=== PATIENT | female | born 1985 ===

== ENCOUNTER 2018-05-27 07:16 | Emergency (ER) | payer MEDICAID ==
[2018-05-27 07:16] VITALS: BMI 27.9
[2018-05-27] MEDS ORDERED: Sodium Chloride 0.9% 1,000 ML IV STA (08:10)
[2018-05-27 08:40] LABS: SQUAMOUS EPITHIAL 3 /hpf (0-5); URINE BACTERIA RARE (<OCC); URINE BILIRUBIN NEGATIVE (NEGATIVE); URINE BLOOD SMALL (NEGATIVE); URINE CLARITY SLIGHTY-CLOUDY (Clear); URINE COLOR YELLOW (YELLOW); URINE GLUCOSE (UA) NEG (Normal); URINE LEUKOCYTE ESTERASE NEG Leu/uL (Negative); URINE PROTEIN NEGATIVE (NEGATIVE); URINE UROBILINOGEN 0.2-1.0 mg/dL (0.2-1.0)
[2018-05-27 09:08] LABS: ALB/GLOB RATIO 1.2 (1.0-2.1); ALBUMIN 3.9 g/dL (3.5-5.0); ALT/SGPT 29 U/L (9-52); AST/SGOT 19 U/L (14-36); BLOOD UREA NITROGEN 8 mg/dl (7-17); CALCIUM 9.1 mg/dL (8.4-10.2); GFR NON-AFRICAN AMERICAN > 60; LIPASE 39 U/L (23-300)
--- NOTE | 2018-05-27 09:17 | ED PDOC ---
HPI: Abdomen Time Seen by Provider: 05/27/18 07:39 Chief Complaint (Nursing): Abdominal Pain Chief Complaint (Provider): Abdominal Pain History Per: Patient History/Exam Limitations: no limitations Onset/Duration Of Symptoms: Days (x1 week) Current Symptoms Are (Timing): Still Present Additional Complaint(s): 32 year old female, with a PMHx of left ovarian cysts, presenting for evaluation of left ovarian cyst pain x1 week. Patient states she's had this current left o varian cyst for 3 months, but the pain has gradually worsened over the past week and became constant at 0000. Patient states she's been taking Tramadol and Motrin for pain. She states the Motrin provides no relief of pain and reports some relief of pain with Tramadol, but states it upsets her stomach. Patient states her Tramadol is from a previous prescription for which she obtained a refill. Patient also reports 3 episodes of non-bloody, non-bilious vomiting at 0000 and 4-5 more episodes of the same this morning prior to arrival. She reports taking Zofran for her nausea with relief and denies any current nausea. Patient states she is presenting today because her current pain is different fr om her prior ovarian cyst pain. She reports following up for her condition at [facility] and states she has an appointment to see a specialist 06/19. Patient otherwise denies any chest pain, shortness of breath, headache, cough, fever, or chills. Patient also reports vaginal discharge x1 week. Patient states this discharge is unusual for her and reports she is sexually active with her partner. Patient denies any other associated urinary symptoms or vaginal bleeding. PMD: [facility] Past Medical History Reviewed: Historical Data, Nursing Documentation, Vital Signs Vital Signs: Last Vital Signs Temp 98.3 F 05/27/18 07:19 Pulse 58 L 05/27/18 07:47 Resp 18 05/27/18 07:47 BP 109/55 L 05/27/18 07:47 Pulse Ox 99 05/27/18 07:47 - Medical History PMH: Back Problems (Scoliosis; herniated disc), Gall Bladder Disease (''LIQUID AROUND GALLBLADDER'') Denies: Chronic Kidney Disease - Family History Family History: States: No Known Family Hx - Immunization History Hx Tetanus Toxoid Vaccination: No Hx Influenza Vaccination: Yes Hx Pneumococcal Vaccination: No - Home Medications Home Medications: Ambulatory Orders Medication Instructions Recorded Ibuprofen [Motrin] 600 mg PO Q8 #30 tab 05/21/18 Ondansetron ODT [Zofran ODT] 1 odt PO BID PRN #6 odt 05/21/18 Famotidine [Pepcid] 20 mg PO BID #28 tab 05/27/18 Naproxen [Naprosyn] 500 mg PO BID PRN #20 tablet 05/27/18 - Allergies Allergies/Adverse Reactions: Allergies Allergy/AdvReac Type Severity Reaction Status Date / Time No Known Allergies Allergy Verified 05/21/18 12:24 Review of Systems ROS Statement: Except As Marked, All Systems Reviewed And Found Negative Constitutional: Negative for: Fever, Chills Gastrointestinal: Positive for: Nausea (none currently), Vomiting, Abdominal Pain. Negative for: Diarrhea Genitourinary Female: Positive for: Vaginal Discharge. Negative for: Dysuria, Frequency, Incontinence, Hematuria, Vaginal Bleeding Physical Exam - Reviewed Nursing Documentation Reviewed: Yes Vital Signs Reviewed: Yes - Physical Exam Appears: Positive for: Non-toxic, In Acute Distress (moderate discomfort secondary to pain) Head Exam: Positive for: ATRAUMATIC, NORMAL INSPECTION, NORMOCEPHALIC Skin: Positive for: Normal Color, Warm, Dry. Negative for: Rash Eye Exam: Positive for: EOMI, Normal appearance, PERRL ENT: Positive for: Normal ENT Inspection Neck: Positive for: Normal, Painless ROM, Supple Cardiovascular/Chest: Positive for: Regular Rate, Rhythm. Negative for: Murmur Respiratory: Positive for: Normal Breath Sounds. Negative for: Respiratory Distress Gastrointestinal/Abdominal: Positive for: Tenderness (diffuse; worse on left than right), Guarding Back: Positive for: L CVA Tenderness, R CVA Tenderness (greater than left) Extremity: Positive for: Normal ROM. Negative for: Pedal Edema, Deformity Neurologic/Psych: Positive for: Alert, Oriented (x3). Negative for: Mo tor/Sensory Deficits - Laboratory Results Result Diagrams: 05/27/18 08:35 05/27/18 08:35 - ECG O2 Sat by Pulse Oximetry: 99 (RA) Pulse Ox Interpretation: Normal Medical Decision Making Medical Decision Makin Impression: Abdominal pain Plan: -CMP -Lipase -Urine dip -CBC -NS 1L IVB -Pepcid 20mg IVP -Toradol 30mg IVP -IV insertion -Urinalysis -Pelvis US -Reevaluation 09: On re-evaluation, patient is complaining of nausea and continued pain. -Morphine 2mg IV -Zofran 4mg IVP -Re-evaluation Scribe Attestation: Documented by Asif Martinez, acting as a scribe for Venessa Garcia MD. Provider Scribe Attestation: All medical record entries made by the Scribe were at my direction and personally dictated by me. I have reviewed the chart and agree that the record accurately reflects my personal performance of the history, physical exam, medical decision making, and the department course for this patient. I have also personally directed, reviewed, and agree with the discharge instructions and disposition. 2.00p - patient seen by Dr. Matthews earlier. Case d/w with him after review of labs and US. ADvised outpatient followup and pain control. Patient only taking Motrin once daily. Disposition - Clinical Impression Clinical Impression: Ovarian cyst - Patient ED Disposition Is Patient to be Admitted: No Doctor Will See Patient In The: Office Counseled Patient/Family Regarding: Diagnosis, Need For Followup, Rx Given - Disposition Referrals: [facility] [employer] [facility] [Outside] [facility] [Outside] [facility] [Outside] [employer] [place] [Outside] [facility] [Outside] Disposition: Routine/Home Disposition Time: 13:30 Condition: STABLE Prescriptions: Famotidine [Pepcid] 20 mg PO BID #28 tab Naproxen [Naprosyn] 500 mg PO BID PRN #20 tablet PRN Reason: Pain, Moderate (4-7) Instructions: Ovarian Cysts Forms: [employer] (Senegalese) - POA Present On Arrival: None
[2018-05-27 09:18] LABS: BASO % 0.7 % (0.0-2.0); EOS # 0.2 K/uL (0.0-0.7); EOS % 3.1 % (0.0-4.0); HEMOGLOBIN 13.6 g/dL (12.0-16.0); LYMPH # 1.8 K/uL (1.0-4.3); LYMPH % 34.9 % (20.0-40.0); MEAN CORPUSCULAR HEMOGLOBIN 29.3 pg (27.0-31.0); MEAN PLATELET VOLUME 9.7 fl (7.2-11.7); MONO # 0.4 K/uL (0.0-0.8); NEUT # 2.8 K/uL (1.8-7.0); NEUT % 53.3 % (50.0-75.0); NRBC % 0.1 % (0.0-0.0); RBC 4.64 Mil/uL (3.80-5.20); RED CELL DISTRIBUTION WIDTH 13.5 % (11.5-14.5); WHITE BLOOD COUNT 5.2 K/uL (4.8-10.8)
[2018-05-27 11:08] VITALS: PULSE 58
--- NOTE | 2018-05-27 12:24 | US ---
Date of service: 05/27/2018 HISTORY: ovarian cyst x 3 months, worsening pain x 1 week. LMP 04/29/2018 COMPARISON: None available. TECHNIQUE: Transabdominal only. Real-time technique with 2D, duplex and color Doppler FINDINGS: UTERUS: Measures 4.8 x 5.5 x 8.4 cm. Normal in size and appearance. No fibroid or other mass lesion seen. ENDOMETRIUM: Measures 6.7 mm in diameter. No ultrasound findings to suggest gestational sac, fluid, debris, mass or polyp or other pathologic process within the endometrium. CERVIX: No cervical abnormality identified. RIGHT OVARY: Measures 1.5 x 2.2 cm. No solid mass. Normal flow. Multiple subcentimeter follicles. LEFT OVARY: Measures 2.3 x 4.6 x 4.8 cm. No solid mass. Normal flow. Mass/complex cyst 2.3 x 4.5 x 4.8 cm. Is FREE FLUID: No significant free fluid noted. OTHER FINDINGS: None. IMPRESSION: Unremarkable uterus, endometrial echo complex and right ovary. Complex cyst/mass left adnexa. If there is a clinical suspicion of ectopic gestation, appropriate follow-up recommended. Otherwise follow-up ultrasound 4-6 weeks.
[2018-05-27 14:41] VITALS: BP 106/58; RESP 18; TEMP 99.6; O2SAT 98
== END 2018-05-27 14:39 | disposition home or self-care (01) ==
LOC: H.ER 07:16
DX: N83.209 Unspecified ovarian cyst, unspecified side (principal)
CPT/HCPCS: 76856; 80053; 81003; 81025; 83690; 85025; 96374; 96375; 99284; J1885; J2270; J2405; J7030

== ENCOUNTER 2018-06-21 00:08 | Inpatient (IN) | payer MEDICAID ==
[2018-06-21 00:09] VITALS: BMI 18.8
--- NOTE | 2018-06-21 01:02 | ED PDOC ---
HPI: Abdomen Time Seen by Provider: 06/21/18 00:22 Chief Complaint (Nursing): Abdominal Pain Chief Complaint (Provider): Abdominal pain, involuntary weight loss History Per: Patient History/Exam Limitations: no limitations Onset/Duration Of Symptoms: Persistent Outside of [place] travel?: No Current Symptoms Are (Timing): Still Present Additional Complaint(s): 32yo female, comes to ER reporting abdominal pain and weight loss. Patient states she has a history of ovarian cysts and since late May, she has had intermittent abdominal pain with marked involuntary weight loss (apporixmately 25ls.) Patient was seen in this ER, [facility] and [facility] ER with extensive workup, including labs, CT and ultrasound with nonspecific result. Patient states the symptoms have become worse and today, her pain is 7/10 and located in her left abdomen. Patient states she was started on Cipro and Flagyl at [facility] and she saw her PMD yesterday, who gave her an inhaler due to shortness of breath at night. Of note, patient states she is m arried and her is her only partner. Otherwise, patient denies any travels, and offers no additional complaints. PMD: Dr. Isidra Tapia Past Medical History Reviewed: Historical Data, Nursing Documentation, Vital Signs Vital Signs: Last Vital Signs Temp 98.2 F 06/21/18 00:18 Pulse 50 L 06/21/18 00:18 Resp 18 06/21/18 00:18 BP 112/60 06/21/18 00:18 Pulse Ox 99 06/21/18 00:18 - Medical History PMH: Back Problems (Scoliosis; herniated disc), Gall Bladder Disease (''LIQUID AROUND GALLBLADDER'') Denies: Chronic Kidney Disease - Surgical History Surgical History: No Surg Hx - Family History Family History: States: Other Other Family History: Aunt with breast cancer; aunt with (?) nasopharyngeal cancer - Living Arrangements Living Arrangements: With Family - Social History Current smoker - smoking cessation education provided: No Ex-Smoker (has not smoked in the last 12 months): Yes (stopped 3 yrs ago) - Immunization History Hx Tetanus Toxoid Vaccination: No Hx Influenza Vaccination: No Hx Pneumococcal Vaccination: No - Home Medications Home Medications: Ambulatory Orders Medication Instructions Recorded Pantoprazole Sodium [Protonix] 40 mg PO DAILY #30 ect 06/18/18 - Allergies Allergies/Adverse Reactions: Allergies Allergy/AdvReac Type Severity Reaction Status Date / Time No Known Allergies Allergy Verified 06/21/18 00:18 Review of Systems ROS Statement: Except As Marked, All Systems Reviewed And Found Negative Constitutional: Positive for: Weight loss Gastrointestinal: Positive for: Abdominal Pain Physical Exam - Reviewed Nursing Documentation Reviewed: Yes Vital Signs Reviewed: Yes - Physical Exam Appears: Positive for: Non-toxic. Negative for: Well (cachectic appearing) Skin: Positive for: Pallor Eye Exam: Positive for: Normal appearance Neck: Positive for: Supple Cardiovascular/Chest: Positive for: Regular Rate, Rhythm Respiratory: Positive for: Normal Breath Sounds Gastrointestinal/Abdominal: Positive for: Soft, Tenderness (diffuse tenderness) Back: Positive for: Normal Inspection Extremity: Positive for: Normal ROM Neurologic/Psych: Positive for: Alert, Oriented - Laboratory Results Result Diagrams: 06/21/18 01:05 06/21/18 01:05 - ECG O2 Sat by Pulse Oximetry: 99 (RA) Pulse Ox Interpretation: Normal Medical Decision Making Medical Decision Making: Impression: 32yo female with pathological weight loss in setting of abdominal pain. Patient w/ multiple ER visits. Plan: -- Labs -- IV Fluids -- Toradol 30mg IV -- Will defer CT studies due to multiple imaging studies in the past 3 weeks. 0155 HIV screen negative. 0219 Labs reviewed and significant for hypokalemis. Given patient's multiple ER visits and significant involuntary weight loss, patient to be admitted for further workup and treatment. Plan for admission discussed with patient, who is agreeable. Diagnosis: Cachexia with pathological weight loss Abdominal pain Hypokalemia. Scribe Attestation: Documented by Vaishnavi Angel, acting as a scribe for Tony Chong MD. Provider Scribe Attestation: All medical record entries made by the Scribe were at my direction and personal ly dictated by me. I have reviewed the chart and agree that the record accurately reflects my personal performance of the history, physical exam, medical decision making, and the department course for this patient. I have also personally directed, reviewed, and agree with the discharge instructions and disposition. Disposition - Clinical Impression Clinical Impression: Cachexia, Hypokalemia, Abdominal pain - Patient ED Disposition Is Patient to be Admitted: Yes Discussed With : Duke Laws - Disposition Disposition Time: 02:21 Condition: FAIR Forms: [employer] (Amharic)
[2018-06-21] MEDS ORDERED: Sodium Chloride 0.9% 1,000 ML IV STA (01:10)
[2018-06-21 01:24] LABS: BASO # 0.1 K/uL (0.0-0.2); BASO % 0.8 % (0.0-2.0); EOS # 0.2 K/uL (0.0-0.7); EOS % 2.7 % (0.0-4.0); HEMOGLOBIN 12.3 g/dL (12.0-16.0); LYMPH # 2.3 K/uL (1.0-4.3); MEAN CELL VOLUME 86.7 fl (81.0-99.0); MEAN CORPUSCULAR HEMOGLOBIN 28.3 pg (27.0-31.0); MEAN CORPUSCULAR HGB CONC 32.7 g/dL (33.0-37.0); MEAN PLATELET VOLUME 9.6 fl (7.2-11.7); MONO # 0.5 K/uL (0.0-0.8); MONO % 8.3 % (0.0-10.0); NEUT # 3.1 K/uL (1.8-7.0); NEUT % 50.2 % (50.0-75.0); NRBC % 0.1 % (0.0-0.0); RBC 4.33 Mil/uL (3.80-5.20); RED CELL DISTRIBUTION WIDTH 12.9 % (11.5-14.5); WHITE BLOOD COUNT 6.1 K/uL (4.8-10.8)
[2018-06-21 01:34] LABS: PROTHROMBIN TIME 11.7 Seconds (9.8-13.1)
[2018-06-21 01:37] LABS: ALB/GLOB RATIO 1.4 (1.0-2.1); ALBUMIN 4.6 g/dL (3.5-5.0); ALT/SGPT 29 U/L (9-52); AST/SGOT 24 U/L (14-36); BLOOD UREA NITROGEN 10 mg/dl (7-17); CALCIUM 9.1 mg/dL (8.4-10.2); GFR NON-AFRICAN AMERICAN > 60; LIPASE 35 U/L (23-300); PARTIAL THROMBOPLASTIN TIME 34.3 Seconds (25.6-37.1)
[2018-06-21] MEDS ORDERED: Potassium CL 10 MEQ/50 ML 50 ML IVPB ONE (02:17)
[2018-06-21] MEDS ORDERED: Potassium CL 10 MEQ/50 ML 50 ML ONE (03:04)
[2018-06-21 03:09] LABS: BARBITURATES, UR NEGATIVE (NEGATIVE); BENZODIAZEPINES, UR POSITIVE (NEGATIVE); OPIATES, UR NEGATIVE (NEGATIVE); PHENCYCLIDINE, UR NEGATIVE (NEGATIVE)
[2018-06-21] MEDS ORDERED: Sodium Chloride 0.9% 1,000 ML IV SCH (06:30)
[2018-06-21] MEDS ORDERED: Sucralfate 1 gm/10 ml Oral Susp UD PO SCH (19:00)
[2018-06-21] MEDS ORDERED: Potassium Chloride 20 mEq/15 ml LIQ UD PO ONE (19:46)
--- NOTE | 2018-06-21 19:49 | CP.PCM.CON ---
Past Patient History - Infectious Disease Hx of Infectious Diseases: None - Past Medical History & Family History Past Medical History?: Yes - Past Social History Smoking Status: Never Smoked - CARDIAC Hx Cardiac Disorders: No - PULMONARY Hx Respiratory Disorders: No - NEUROLOGICAL Hx Neurological Disorder: No - HEENT Hx HEENT Problems: No - RENAL Hx Chronic Kidney Disease: No - ENDOCRINE/METABOLIC Hx Endocrine Disorders: No - HEMATOLOGICAL/ONCOLOGICAL Hx Blood Disorders: No - INTEGUMENTARY Hx Dermatological Problems: No - MUSCULOSKELETAL/RHEUMATOLOGICAL Hx Musculoskeletal Disorders: Yes Hx Falls: No Other/Comment: Scoliosis - GASTROINTESTINAL Hx Gall Bladder Disease: Yes (''LIQUID AROUND GALLBLADDER'') - GENITOURINARY/GYNECOLOGICAL Hx Genitourinary Disorders: Yes Other/Comment: Lt ovarian cyst. at age 15. 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 Rt ovarian tumor removal - ANESTHESIA Hx Anesthesia: Yes Hx Anesthesia Reactions: No Hx Malignant Hyperthermia: No Meds Allergies/Adverse Reactions: Allergies Allergy/AdvReac Type Severity Reaction Status Date / Time No Known Allergies Allergy Verified 06/21/18 00:18 - Medications Medications: Current Medications Dicyclomine HCl (Bentyl) 10 mg PO QID SANJEEV Sodium Chloride (Sodium Chloride 0.9%) 1,000 mls @ 70 mls/hr IV .[id number] SANJEEV Stop: 06/22/18 06:20 Last Admin: 06/21/18 06:31 Dose: 70 mls/hr Dextrose/Lactated Ringer's (Dextrose 5%/Lactated Ringer's) 1,000 mls @ 100 mls/hr IV .Q10H SANJEEV Stop: 06/22/18 18:17 Pantoprazole Sodium (Protonix Inj) 40 mg IVP DAILY SANJEEV Potassium Chloride (Potassium Chloride Oral Soln) 40 meq PO ONCE ONE Stop: 06/21/18 19:47 Sucralfate (Carafate Oral Susp) 1 gm PO ACHS [facility] Results - Vital Signs Recent Vital Signs: Last Vital Signs Temp 98.7 F 06/21/18 15:55 Pulse 72 06/21/18 15:55 Resp 20 06/21/18 15:55 BP 114/65 06/21/18 15:55 Pulse Ox 100 06/21/18 15:55 - Labs Result Diagrams: 06/22/18 04:30 06/22/18 04:30 Labs: Laboratory Results - last 24 hr 06/21/18 06/21/18 06/21/18 01:05 01:05 01:05 WBC 6.1 RBC 4.33 Hgb 12.3 Hct 37.6 MCV 86.7 MCH 28.3 MCHC 32.7 L RDW 12.9 Plt Count 214 MPV 9.6 Neut % (Auto) 50.2 Lymph % (Auto) 38.0 Clare % (Auto) 8.3 Eos % (Auto) 2.7 Baso % (Auto) 0.8 Neut # (Auto) 3.1 Lymph # (Auto) 2.3 Clare # (Auto) 0.5 Eos # (Auto) 0.2 Baso # (Auto) 0.1 PT INR APTT Sodium 140 Potassium 3.3 L Chloride 105 Carbon Dioxide 26 Anion Gap 12 BUN 10 Creatinine 0.7 Est GFR ( Amer) > 60 Est GFR (Non-Af Amer) > 60 Random Glucose 79 Lactic Acid 0.8 Calcium 9.1 Magnesium 1.9 Total Bilirubin 0.8 AST 24 ALT 29 Alkaline Phosphatase 52 NT-Pro-B Natriuret Pep Total Protein 7.8 Albumin 4.6 Globulin 3.2 Albumin/Globulin Ratio 1.4 Lipase 35 Carcinoembryonic Ag CA 19-9 Antigen CA 125 Antigen TSH 3rd Generation 1.82 Urine Opiates Screen Urine Methadone Screen Ur Barbiturates Screen Ur Phencyclidine Scrn Ur Amphetamines Screen U Benzodiazepines Scrn U Oth Cocaine Metabols U Cannabinoids Screen RPR HIV-1 Ab Rapid Screen 06/21/18 06/21/18 06/21/18 01:05 01:05 01:05 WBC RBC Hgb Hct MCV MCH MCHC RDW Plt Count MPV Neut % (Auto) Lymph % (Auto) Clare % (Auto) Eos % (Auto) Baso % (Auto) Neut # (Auto) Lymph # (Auto) Clare # (Auto) Eos # (Auto) Baso # (Auto) PT 11.7 INR 1.0 APTT 34.3 Sodium Potassium Chloride Carbon Dioxide Anion Gap BUN Creatinine Est GFR ( Amer) Est GFR (Non-Af Amer) Random Glucose Lactic Acid Calcium Magnesium Total Bilirubin AST ALT Alkaline Phosphatase NT-Pro-B Natriuret Pep Total Protein Albumin Globulin Albumin/Globulin Ratio Lipase Carcinoembryonic Ag CA 19-9 Antigen CA 125 Antigen TSH 3rd Generation Urine Opiates Screen Urine Methadone Screen Ur Barbiturates Screen Ur Phencyclidine Scrn Ur Amphetamines Screen U Benzodiazepines Scrn U Oth Cocaine Metabols U Cannabinoids Screen RPR Nonreactive HIV-1 Ab Rapid Screen Non reactive 06/21/18 06/21/18 06/21/18 01:22 12:40 13:00 WBC RBC Hgb Hct MCV MCH MCHC RDW Plt Count MPV Neut % (Auto) Lymph % (Auto) Clare % (Auto) Eos % (Auto) Baso % (Auto) Neut # (Auto) Lymph # (Auto) Clare # (Auto) Eos # (Auto) Baso # (Auto) PT INR APTT Sodium Potassium Chloride Carbon Dioxide Anion Gap BUN Creatinine Est GFR ( Amer) Est GFR (Non-Af Amer) Random Glucose Lactic Acid Calcium Magnesium Total Bilirubin AST ALT Alkaline Phosphatase NT-Pro-B Natriuret Pep 306 Total Protein Albumin Globulin Albumin/Globulin Ratio Lipase Carcinoembryonic Ag 0.8 CA 19-9 Antigen 6.1 CA 125 Antigen < 5.5 TSH 3rd Generation Urine Opiates Screen Negative Urine Methadone Screen Negative Ur Barbiturates Screen Negative Ur Phencyclidine Scrn Negative Ur Amphetamines Screen Negative U Benzodiazepines Scrn Positive U Oth Cocaine Metabols Negative U Cannabinoids Screen Positive H RPR HIV-1 Ab Rapid Screen Assessment & Plan (1) Bradycardia Status: Acute (2) Chest pain Status: Acute (3) Dyspnea Status: Acute (4) Hx of hepatic disease Status: Acute (5) Tattoo of skin Status: Acute (6) Cachexia Status: Acute (7) Normocytic anemia Status: Acute - Assessment and Plan (Free Text) Plan: echo tft stool O A Schisto ABs lyme titer HIV mag and kcl replacement
[2018-06-21] MEDS: Dextrose 5%/Lactated Ringer's 1,000 ML IV SCH (19:55)
--- NOTE | 2018-06-21 20:57 | CP.PCM.HP ---
History of Present Illness - History of Present Illness History of Present Illness: 32F PMHx significant for ovarian cysts presented t ED w/ lower abdominal pain that has been intermittent over the last month. Patient has been to numerous hospitals and ED with similar episodes and as per patient no answered. Patient was found to have trace fluid in abdomen and some intestinal wall thickening, gallstones. Patient has also had 25lb weight loss, involuntarily. No other complaints offered at this time. Present on Admission - Present on Admission Any Indicators Present on Admission: No Review of Systems - Review of Systems All systems: reviewed and no additional remarkable complaints except (mentioned in HPI) Past Patient History - Infectious Disease Hx of Infectious Diseases: None - Past Medical History & Family History Past Medical History?: Yes Past Family History: Reviewed and not pertinent - Past Social History Smoking Status: Never Smoked - CARDIAC Hx Cardiac Disorders: No - PULMONARY Hx Respiratory Disorders: No - NEUROLOGICAL Hx Neurological Disorder: No - HEENT Hx HEENT Problems: No - RENAL Hx Chronic Kidney Disease: No - ENDOCRINE/METABOLIC Hx Endocrine Disorders: No - HEMATOLOGICAL/ONCOLOGICAL Hx Blood Disorders: No - INTEGUMENTARY Hx Dermatological Problems: No - MUSCULOSKELETAL/RHEUMATOLOGICAL Hx Musculoskeletal Disorders: Yes Hx Falls: No Other/Comment: Scoliosis - GASTROINTESTINAL Hx Gall Bladder Disease: Yes (''LIQUID AROUND GALLBLADDER'') - GENITOURINARY/GYNECOLOGICAL Hx Genitourinary Disorders: Yes Other/Comment: Lt ovarian cyst. at age 15. 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 Rt ovarian tumor removal - ANESTHESIA Hx Anesthesia: Yes Hx Anesthesia Reactions: No Hx Malignant Hyperthermia: No Meds Allergies/Adverse Reactions: Allergies Allergy/AdvReac Type Severity Reaction Status Date / Time No Known Allergies Allergy Verified 06/21/18 00:18 Physical Exam - Constitutional Appears: Non-toxic, No Acute Distress - Head Exam Head Exam: NORMAL INSPECTION - Eye Exam Eye Exam: Normal appearance - Neck Exam Neck exam: Positive for: Normal Inspection - Respiratory Exam Respiratory Exam: NORMAL BREATHING PATTERN - Cardiovascular Exam Cardiovascular Exam: +S1, +S2 - GI/Abdominal Exam GI & Abdominal Exam: Normal Bowel Sounds, Soft, Tenderness (lower abd) - Back Exam Back exam: NORMAL INSPECTION - Neurological Exam Neurological exam: Alert, Oriented x3 - Psychiatric Exam Psychiatric exam: Normal Affect, Normal Mood - Skin Skin Exam: Normal Color, Warm Results - Vital Signs Recent Vital Signs: Last Vital Signs Temp 98.5 F 06/21/18 20:34 Pulse 44 L 06/21/18 20:34 Resp 18 06/21/18 20:34 BP 120/67 06/21/18 20:34 Pulse Ox 100 06/21/18 20:34 - Labs Result Diagrams: 06/24/18 04:03 06/24/18 04:03 Labs: Laboratory Results - last 24 hr 06/21/18 06/21/18 06/21/18 01:05 01:05 01:05 WBC 6.1 RBC 4.33 Hgb 12.3 Hct 37.6 MCV 86.7 MCH 28.3 MCHC 32.7 L RDW 12.9 Plt Count 214 MPV 9.6 Neut % (Auto) 50.2 Lymph % (Auto) 38.0 Tyler % (Auto) 8.3 Eos % (Auto) 2.7 Baso % (Auto) 0.8 Neut # (Auto) 3.1 Lymph # (Auto) 2.3 Tyler # (Auto) 0.5 Eos # (Auto) 0.2 Baso # (Auto) 0.1 PT INR APTT Sodium 140 Potassium 3.3 L Chloride 105 Carbon Dioxide 26 Anion Gap 12 BUN 10 Creatinine 0.7 Est GFR ( Amer) > 60 Est GFR (Non-Af Amer) > 60 Random Glucose 79 Lactic Acid 0.8 Calcium 9.1 Magnesium 1.9 Total Bilirubin 0.8 AST 24 ALT 29 Alkaline Phosphatase 52 NT-Pro-B Natriuret Pep Total Protein 7.8 Albumin 4.6 Globulin 3.2 Albumin/Globulin Ratio 1.4 Lipase 35 Carcinoembryonic Ag CA 19-9 Antigen CA 125 Antigen TSH 3rd Generation 1.82 Urine Opiates Screen Urine Methadone Screen Ur Barbiturates Screen Ur Phencyclidine Scrn Ur Amphetamines Screen U Benzodiazepines Scrn U Oth Cocaine Metabols U Cannabinoids Screen RPR HIV-1 Ab Rapid Screen 06/21/18 06/21/18 06/21/18 01:05 01:05 01:05 WBC RBC Hgb Hct MCV MCH MCHC RDW Plt Count MPV Neut % (Auto) Lymph % (Auto) Tyler % (Auto) Eos % (Auto) Baso % (Auto) Neut # (Auto) Lymph # (Auto) Tyler # (Auto) Eos # (Auto) Baso # (Auto) PT 11.7 INR 1.0 APTT 34.3 Sodium Potassium Chloride Carbon Dioxide Anion Gap BUN Creatinine Est GFR ( Amer) Est GFR (Non-Af Amer) Random Glucose Lactic Acid Calcium Magnesium Total Bilirubin AST ALT Alkaline Phosphatase NT-Pro-B Natriuret Pep Total Protein Albumin Globulin Albumin/Globulin Ratio Lipase Carcinoembryonic Ag CA 19-9 Antigen CA 125 Antigen TSH 3rd Generation Urine Opiates Screen Urine Methadone Screen Ur Barbiturates Screen Ur Phencyclidine Scrn Ur Amphetamines Screen U Benzodiazepines Scrn U Oth Cocaine Metabols U Cannabinoids Screen RPR Nonreactive HIV-1 Ab Rapid Screen Non reactive 06/21/18 06/21/18 06/21/18 01:22 12:40 13:00 WBC RBC Hgb Hct MCV MCH MCHC RDW Plt Count MPV Neut % (Auto) Lymph % (Auto) Tyler % (Auto) Eos % (Auto) Baso % (Auto) Neut # (Auto) Lymph # (Auto) Tyler # (Auto) Eos # (Auto) Baso # (Auto) PT INR APTT Sodium Potassium Chloride Carbon Dioxide Anion Gap BUN Creatinine Est GFR ( Amer) Est GFR (Non-Af Amer) Random Glucose Lactic Acid Calcium Magnesium Total Bilirubin AST ALT Alkaline Phosphatase NT-Pro-B Natriuret Pep 306 Total Protein Albumin Globulin Albumin/Globulin Ratio Lipase Carcinoembryonic Ag 0.8 CA 19-9 Antigen 6.1 CA 125 Antigen < 5.5 TSH 3rd Generation Urine Opiates Screen Negative Urine Methadone Screen Negative Ur Barbiturates Screen Negative Ur Phencyclidine Scrn Negative Ur Amphetamines Screen Negative U Benzodiazepines Scrn Positive U Oth Cocaine Metabols Negative U Cannabinoids Screen Positive H RPR HIV-1 Ab Rapid Screen Assessment & Plan (1) Abdominal pain Status: Acute (2) Bradycardia Status: Acute (3) Gallstones Status: Acute (4) Hypokalemia Status: Acute (5) Ovarian cyst Status: Acute - Assessment and Plan (Free Text) Assessment: 32 yo f with abdominal pain with involunatary pathological weight loss found to have marked bradycardia and hypokalemia. plan obtain cardiology consult labs ordered f/u [facility] in telemetry rest of plan as ordered
[2018-06-21] MEDS: Sucralfate 1 gm/10 ml Oral Susp UD PO SCH (21:38)
--- NOTE | 2018-06-21 22:22 | CARD ---
APPROVED REPORT Date of service: 06/21/2018 EKG Measurement Heart [id number] <Conclusion> Marked sinus bradycardia Abnormal ECG
[2018-06-22 06:06] LABS: BASO % 0.9 % (0.0-2.0); EOS # 0.1 K/uL (0.0-0.7); EOS % 2.2 % (0.0-4.0); HEMOGLOBIN 11.4 g/dL (12.0-16.0); LYMPH # 1.6 K/uL (1.0-4.3); LYMPH % 33.7 % (20.0-40.0); MEAN CELL VOLUME 88.4 fl (81.0-99.0); MEAN CORPUSCULAR HEMOGLOBIN 28.8 pg (27.0-31.0); MEAN CORPUSCULAR HGB CONC 32.5 g/dL (33.0-37.0); MEAN PLATELET VOLUME 10.4 fl (7.2-11.7); MONO # 0.5 K/uL (0.0-0.8); MONO % 9.7 % (0.0-10.0); NEUT # 2.5 K/uL (1.8-7.0); NEUT % 53.5 % (50.0-75.0); NRBC % 0.1 % (0.0-0.0); RBC 3.97 Mil/uL (3.80-5.20); RED CELL DISTRIBUTION WIDTH 13.1 % (11.5-14.5); WHITE BLOOD COUNT 4.7 K/uL (4.8-10.8)
[2018-06-22] MEDS: Dextrose 5%/Lactated Ringer's 1,000 ML IV SCH (06:16)
[2018-06-22 06:35] LABS: ALB/GLOB RATIO 1.2 (1.0-2.1); ALBUMIN 3.3 g/dL (3.5-5.0); ALT/SGPT 32 U/L (9-52); AST/SGOT 19 U/L (14-36); BLOOD UREA NITROGEN 8 mg/dl (7-17); CALCIUM 8.5 mg/dL (8.4-10.2); GFR NON-AFRICAN AMERICAN > 60
[2018-06-22 07:54] LABS: HEPATITIS B SURFACE AG Negative (NEGATIVE)
[2018-06-22 08:00] LABS: HEPATITIS A IGM NEGATIVE (NEGATIVE); HEPATITIS B CORE AB NEGATIVE (NEGATIVE)
[2018-06-22 08:12] LABS: HEPATITIS C ANTIBODY NEGATIVE (NEGATIVE)
[2018-06-22] MEDS: Sucralfate 1 gm/10 ml Oral Susp UD PO SCH ×4 (08:56→21:21)
[2018-06-22] MEDS ORDERED: Influenza Vaccine 60 MCG/0.5 ML SYR (3 yr & up) IM ONE (09:00)
--- NOTE | 2018-06-22 11:22 | CT ---
Date of service: 06/21/2018 PROCEDURE: CT Abdomen and Pelvis without intravenous contrast HISTORY: Abdominal Pain COMPARISON: 05/27/2018 pelvic ultrasound TECHNIQUE: Unenhanced. Neither IV nor oral contrast administered Radiation dose: Total exam DLP = 185.76 mGy-cm. This CT exam was performed using one or more of the following dose reduction techniques: Automated exposure control, adjustment of the mA and/or kV according to patient size, and/or use of iterative reconstruction technique. FINDINGS: LOWER THORAX: Atelectatic changes left base. Trace right pleural effusion. LIVER: Unremarkable. No gross lesion or ductal dilatation. Perihepatic fluid. GALLBLADDER AND BILE DUCTS: Gallstones identified. Pericholecystic fluid noted. PANCREAS: Unremarkable. No gross lesion or ductal dilatation. SPLEEN: Unremarkable. ADRENALS: Unremarkable. No mass. KIDNEYS AND URETERS: Tiny bilateral nonobstructing renal calculi.. No hydronephrosis. No solid mass. VASCULATURE: Unremarkable. No aortic aneurysm. No atherosclerotic calcification or mural plaque present. BOWEL: Constipation without fecal impaction or obstruction. APPENDIX: No abnormalities to suggest acute appendicitis. No right lower quadrant inflammatory processes identified. PERITONEUM: Right upper quadrant fluid, fluid in the gallbladder fossa, perihepatic space and cul-de-sac. No visible free air. LYMPH NODES: Unremarkable. No enlarged lymph nodes. BLADDER: Unremarkable. REPRODUCTIVE: Unremarkable. BONES: No acute fracture. OTHER FINDINGS: None. IMPRESSION: 1. Gallstones. 2. Nonobstructing bilateral renal calculi. 3. Trace fluid in the right upper quadrant in the cul-de-sac. 4. Additional benign and/or incidental findings described above.
--- NOTE | 2018-06-22 17:52 | CARD ---
APPROVED REPORT Date of service: 06/22/2018 EXAM: Two-dimensional and M-mode echocardiogram with Doppler and color Doppler. Other Information Quality : GoodRhythm : Bradycardia INDICATION Orthopnea 2D DIMENSIONS IVSd0.79 (0.7-1.1cm)LVDd4.43 (3.9-5.9cm) LVOT Diameter2.16 (1.8-2.4cm)PWd0.74 (0.7-1.1cm) IVSs1.04 (0.8-1.2cm)LVDs2.56 (2.5-4.0cm) FS (%) 42.2 %PWs1.50 (0.8-1.2cm) M-Mode DIMENSIONS Left Atrium (MM)3.83 (2.5-4.0cm)IVSd0.52 (0.7-1.1cm) Aortic Root3.42 (2.2-3.7cm)LVDd5.51 (4.0-5.6cm) Aortic Cusp Exc.1.76 (1.5-2.0cm)PWd0.72 (0.7-1.1cm) IVSs0.85 cmFS (%) 41 % LVDs3.28 (2.0-3.8cm)PWs1.21 cm Aortic Valve AoV Peak Jratuath704.0cm/sAoV VTI25.3cmAO Peak GR.5mmHg LVOT Peak Psungixi59.4cm/sLVOT VTI20.44cmAO Mean GR.3mmHg VERO (VMAX)2.70se9QDN (VTI)2.12cm2 Mitral Valve MV E Wpcqpulj27.1cm/sMV DECEL [id number] A Gfeshkns64.8cm/s MV XYU54kuP/A ratio1.9MVA (PHT)4.13cm2 TDI Lateral E' Peak V15.32cm/sMedial E' Peak V13.85cm/sE/Lateral E'4.6 E/Medial E'5.1 Tricuspid Valve TR Peak Qaivujtt394tv/sRAP AONMQCOT27mqBaXA Peak Gr.17mmHg TQOP26rrQc LEFT VENTRICLE The left ventricle is normal size. There is normal left ventricular wall thickness. The left ventricular systolic function is normal. The estimated ejection fraction is 60-65% No regional wall motion abnormalities noted.. The left ventricular diastolic function is normal. No left ventricle thrombus noted on this study. There is no ventricular septal defect visualized. There is no left ventricular aneurysm. There is no mass noted in the left ventricle. RIGHT VENTRICLE The right ventricle is normal size. There is normal right ventricular wall thickness. The right ventricular systolic function is normal. ATRIA The left atrium size is normal. The right atrium size is normal. The interatrial septum is intact with no evidence for an atrial septal defect. AORTIC VALVE The aortic valve is normal in structure. No aortic regurgitation is present. There is no aortic valvular stenosis. There is no aortic valvular vegetation. MITRAL VALVE The mitral valve is normal in structure. There is no evidence of mitral valve prolapse. There is no mitral valve stenosis. There is no mitral valve regurgitation noted. TRICUSPID VALVE The tricuspid valve is normal in structure. There is mild tricuspid valve regurgitation noted. RVSP is calculated at 30 mm Hg. There is no tricuspid valve prolapse or vegetation. There is no tricuspid valve stenosis. PULMONIC VALVE The pulmonary valve is normal in structure. There is no pulmonic valvular regurgitation. There is no pulmonic valvular stenosis. GREAT VESSELS The aortic root is normal in size. The ascending aorta is normal in size. The pulmonary artery is normal. The IVC is normal in size and collapses >50% with inspiration. PERICARDIAL EFFUSION There is no pericardial effusion. There is no pleural effusion. <Conclusion> The estimated ejection fraction is 60-65% The left ventricular diastolic function is normal. The left atrium size is normal. There is mild tricuspid valve regurgitation noted. RVSP is calculated at 30 mm Hg.
[2018-06-23] MEDS: Sucralfate 1 gm/10 ml Oral Susp UD PO SCH ×4 (09:50→21:12)
--- NOTE | 2018-06-23 11:09 | CP.PCM.CON ---
History of Present Illness - History of Present Illness History of Present Illness: Gastroenterology Consult note- Dr. Gaines 32F pmhx significant for ovarian cysts presents to [facility] ED w/ generalized abdominal pain localized in lower abdomen that has been intermittent over the last month. Patient has been to numerous hospitals and ER with attempt for workup including [facility] and [facility]. Patient was found to have trace fluid in abdomen and some intestinal wall thickening, gallstones. Patient now states pain has worsened and made it to the point of unable to walk, in addition to shortness of breath. Patient obtained inhaler from PMD 2 days ago with minimal benefit. Of note patient admits to having vaginal bleeding irregular from menstrual cycle. FDLMP 06/[address] scan showed constipation stool throughout entire colon, trace free fluid in pelvis. ECHO EF of 60-65%, Transvag US trace free fluid, good blood flow to b/l ovaries PMH: stated above PSH: Ovarian cyst removal x2 ALL: NKDA SocialHx: Former tobacco use quit 3 years ago, denies ETOH, social marijuana use for back pain 12 pt ROS conducted, negative otherwise stated above PMD: Dr. Isidra Tapia Review of Systems - Review of Systems All systems: reviewed and no additional remarkable complaints except - Constitutional Constitutional: As Per HPI - EENT Eyes: As Per HPI Past Patient History - Infectious Disease Hx of Infectious Diseases: None - Past Medical History & Family History Past Medical History?: Yes - Past Social History Smoking Status: Never Smoked - CARDIAC Hx Cardiac Disorders: No - PULMONARY Hx Respiratory Disorders: No - NEUROLOGICAL Hx Neurological Disorder: No - HEENT Hx HEENT Problems: No - RENAL Hx Chronic Kidney Disease: No - ENDOCRINE/METABOLIC Hx Endocrine Disorders: No - HEMATOLOGICAL/ONCOLOGICAL Hx Blood Disorders: No - INTEGUMENTARY Hx Dermatological Problems: No - MUSCULOSKELETAL/RHEUMATOLOGICAL Hx Musculoskeletal Disorders: Yes Hx Falls: No Other/Comment: Scoliosis - GASTROINTESTINAL Hx Gall Bladder Disease: Yes (''LIQUID AROUND GALLBLADDER'') - GENITOURINARY/GYNECOLOGICAL Hx Genitourinary Disorders: Yes Other/Comment: Lt ovarian cyst. at age 15. 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 Rt ovarian tumor removal - ANESTHESIA Hx Anesthesia: Yes Hx Anesthesia Reactions: No Hx Malignant Hyperthermia: No Meds Allergies/Adverse Reactions: Allergies Allergy/AdvReac Type Severity Reaction Status Date / Time No Known Allergies Allergy Verified 06/21/18 00:18 - Medications Medications: Current Medications Acetaminophen (Tylenol 325mg Tab) 650 mg PO Q6 PRN PRN Reason: Pain, Mild (1-3) Last Admin: 06/23/18 09:50 Dose: 650 mg Dicyclomine HCl (Bentyl) 10 mg PO QID [facility] Last Admin: 06/23/18 09:50 Dose: 10 mg Ceftriaxone Sodium 1 gm/ (Sodium Chloride) 100 mls @ 100 mls/hr IVPB DAILY [facility]; Protocol Last Admin: 06/23/18 09:51 Dose: 100 mls/hr Lactulose (Enulose) 20 gm PO Q12 PRN PRN Reason: Constipation Pantoprazole Sodium (Protonix Inj) 40 mg IVP DAILY [facility] Last Admin: 06/23/18 09:50 Dose: 40 mg Sucralfate (Carafate Oral Susp) 1 gm PO ACHS [facility] Last Admin: 06/23/18 09:50 Dose: 1 gm Tramadol HCl (Ultram) 50 mg PO Q12 PRN PRN Reason: Pain, moderate (4-7) Last Admin: 06/22/18 19:59 Dose: 50 mg Physical Exam - Constitutional Appears: Non-toxic, No Acute Distress - Head Exam Head Exam: ATRAUMATIC - Eye Exam Eye Exam: EOMI. absent: Scleral icterus - ENT Exam ENT Exam: Mucous Membranes Moist - Neck Exam Neck exam: Positive for: Normal Inspection - Respiratory Exam Respiratory Exam: NORMAL BREATHING PATTERN. absent: Accessory Muscle Use, Respiratory Distress - Cardiovascular Exam Cardiovascular Exam: +S1, +S2. absent: Bradycardia, Tachycardia - GI/Abdominal Exam GI & Abdominal Exam: Soft. absent: Diminished Bowel Sounds, Distended, Firm, Guarding, Hernia, Rigid, Tenderness - Rectal Exam Rectal Exam: NORMAL INSPECTION Additional comments: stool in rectal vault. no blood - Extremities Exam Extremities exam: Negative for: calf tenderness - Back Exam Back exam: absent: CVA tenderness (L), CVA tenderness (R) - Neurological Exam Neurological exam: Alert, Oriented x3 - Psychiatric Exam Psychiatric exam: Normal Affect - Skin Skin Exam: Intact, Warm Results - Vital Signs Recent Vital Signs: Last Vital Signs Temp 98.2 F 06/23/18 08:58 Pulse 49 L 11/20/18 08:58 Resp 20 06/23/18 08:58 BP 116/65 06/23/18 08:58 Pulse Ox 100 06/23/18 08:58 - Labs Result Diagrams: 06/23/18 11:27 06/22/18 04:30 Labs: Laboratory Results - last 24 hr 06/22/18 04:30 C-Reactive Protein < 5.00 Assessment & Plan - Assessment and Plan (Free Text) Assessment: 32F w/ sub-acute generalized abdominal pain CT: trace free fluid in pelvis, stool throughout entire colon Plan: - Pain control PRN - Avoid Narcotics - c/s Cardiology; all recs appreciated - will start lactulose for constipation - monitor for bowel function - IVF - Abx; will start CTX - recommend hydrotel operator consult for etiology of abdominal pain -discussed w/ Dr. Gaines GI attending PGY2
[2018-06-23 11:31] LABS: HEMOGLOBIN 11.3 g/dL (12.0-16.0); MEAN CELL VOLUME 87.5 fl (81.0-99.0); MEAN CORPUSCULAR HEMOGLOBIN 28.9 pg (27.0-31.0); RBC 3.92 Mil/uL (3.80-5.20); RED CELL DISTRIBUTION WIDTH 12.9 % (11.5-14.5); WHITE BLOOD COUNT 6.3 K/uL (4.8-10.8)
[2018-06-23 11:51] LABS: BLOOD UREA NITROGEN 4 mg/dl (7-17); CALCIUM 8.5 mg/dL (8.4-10.2); GFR NON-AFRICAN AMERICAN > 60
[2018-06-23] MEDS ORDERED: Potassium Chloride 20 mEq ER Tab PO ONE (12:34)
--- NOTE | 2018-06-23 14:38 | CP.PCM.CON ---
History of Present Illness - History of Present Illness History of Present Illness: OBGYN Consult OBGYN team was consulted for possible PID. 32 y/o with LMP 06/03/2018 was seen and examined for complaints of sharp, diffuse abdominal pain x 1.5 wk radiating to right lower back accompanied by nausea, 3 episodes of nonbloody vomit, 3 days of nonbloody diarrhea, and 2 days of vaginal bleeding. Patient reports pain began while she was at home watching tv and has been constant. She went to [facility] for similar complaints as well as [place] ED. She was given cipro & flagyl. She has been in a monogous relationship with her . Her last pap smear was 07/2017, which was normal as per patient. She denies any hx of STI's in the past. She also endorses a weight loss of 25-30 lbs within 1.5 months, and decreased appetite. She denied any fever or chills. OBGYNHx: x 4 (2006, 2011, 2013, 2016) : induced x 2 (2012, 2015) PMH: bronchitis, scoliosis, herniated disc (s/p fall off loading dock) Meds: control, cipro, flagyl Famhx:Maternal aunt- breast cancer Sochx: x-smoker (1/2 pack per day x 14 yrs; quit 3 yrs ago) Surghx: ovarian cyst removal (16 yrs ago); right ovarian tumor removal ROS: all points reviewed and negative unless otherwise mentioned in HPI A/P: 32 y/o with LMP 06/03/2018 was seen and examined for complaints of sharp, diffuse abdominal pain x 1.5 wk. -Abd CT showed no pelvic pathology -Pelvic exam normal -PID unlikely Past Patient History - Infectious Disease Hx of Infectious Diseases: None - Past Medical History & Family History Past Medical History?: Yes - Past Social History Smoking Status: Never Smoked - CARDIAC Hx Cardiac Disorders: No - PULMONARY Hx Respiratory Disorders: No - NEUROLOGICAL Hx Neurological Disorder: No - HEENT Hx HEENT Problems: No - RENAL Hx Chronic Kidney Disease: No - ENDOCRINE/METABOLIC Hx Endocrine Disorders: No - HEMATOLOGICAL/ONCOLOGICAL Hx Blood Disorders: No - INTEGUMENTARY Hx Dermatological Problems: No - MUSCULOSKELETAL/RHEUMATOLOGICAL Hx Musculoskeletal Disorders: Yes Hx Falls: No Other/Comment: Scoliosis - GASTROINTESTINAL Hx Gall Bladder Disease: Yes (''LIQUID AROUND GALLBLADDER'') - GENITOURINARY/GYNECOLOGICAL Hx Genitourinary Disorders: Yes Other/Comment: Lt ovarian cyst. at age 15. 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 Rt ovarian tumor removal - ANESTHESIA Hx Anesthesia: Yes Hx Anesthesia Reactions: No Hx Malignant Hyperthermia: No Meds Allergies/Adverse Reactions: Allergies Allergy/AdvReac Type Severity Reaction Status Date / Time No Known Allergies Allergy Verified 06/21/18 00:18 - Medications Medications: Current Medications Acetaminophen (Tylenol 325mg Tab) 650 mg PO Q6 PRN PRN Reason: Pain, Mild (1-3) Last Admin: 06/23/18 09:50 Dose: 650 mg Dicyclomine HCl (Bentyl) 10 mg PO QID [facility] Last Admin: 06/23/18 12:46 Dose: 10 mg Ceftriaxone Sodium 1 gm/ (Sodium Chloride) 100 mls @ 100 mls/hr IVPB DAILY [facility]; Protocol Last Admin: 06/23/18 09:51 Dose: 100 mls/hr Lactulose (Enulose) 20 gm PO Q12 PRN PRN Reason: Constipation Pantoprazole Sodium (Protonix Inj) 40 mg IVP DAILY [facility] Last Admin: 06/23/18 09:50 Dose: 40 mg Sucralfate (Carafate Oral Susp) 1 gm PO ACHS [facility] Last Admin: 06/23/18 12:46 Dose: 1 gm Tramadol HCl (Ultram) 50 mg PO Q12 PRN PRN Reason: Pain, moderate (4-7) Last Admin: 06/22/18 19:59 Dose: 50 mg Physical Exam - Constitutional Appears: No Acute Distress - Head Exam Head Exam: ATRAUMATIC, NORMAL INSPECTION - Eye Exam Eye Exam: Normal appearance - Neck Exam Neck exam: Positive for: Full Rom - Respiratory Exam Respiratory Exam: absent: Rhonchi, Wheezes - Cardiovascular Exam Cardiovascular Exam: Bradycardia, +S1, +S2 - GI/Abdominal Exam GI & Abdominal Exam: Normal Bowel Sounds, Soft, Tenderness. absent: Distended - Exam Speculum exam: NORMAL SPECULUM EXAM Bimanual exam: NORMAL BIMANUAL EXAM - Extremities Exam Extremities exam: Negative for: calf tenderness, pedal edema - Neurological Exam Neurological exam: Alert, Oriented x3 - Skin Skin Exam: Dry, Intact Results - Vital Signs Recent Vital Signs: Last Vital Signs Temp 98.5 F 06/23/18 12:50 Pulse 50 L 06/23/18 12:50 Resp 18 06/23/18 12:50 BP 120/52 L 06/23/18 12:50 Pulse Ox 97 06/23/18 12:50 - Labs Result Diagrams: 06/23/18 11:27 06/23/18 11:27 Labs: Laboratory Results - last 24 hr 06/22/18 06/23/18 06/23/18 04:30 04:20 11:27 WBC 6.3 RBC 3.92 Hgb 11.3 L Hct 34.3 MCV 87.5 MCH 28.9 MCHC 33.0 RDW 12.9 Plt Count 204 Sodium Potassium Chloride Carbon Dioxide Anion Gap BUN Creatinine Est GFR ( Amer) Est GFR (Non-Af Amer) Random Glucose Calcium C-Reactive Protein < 5.00 HIV 1&2 Antibody Screen Negative 06/23/18 11:27 WBC RBC Hgb Hct MCV MCH MCHC RDW Plt Count Sodium 142 Potassium 3.4 L Chloride 111 H Carbon Dioxide 24 Anion Gap 10 BUN 4 L Creatinine 0.5 L Est GFR ( Amer) > 60 Est GFR (Non-Af Amer) > 60 Random Glucose 113 H Calcium 8.5 C-Reactive Protein HIV 1&2 Antibody Screen
[2018-06-23] MEDS ORDERED: Chlorhexidine Gluconate 1 APPL/PKT TP ONE (14:56)
--- NOTE | 2018-06-23 15:08 | CP.PCM.PN ---
Subjective - Date & Time of Evaluation Date of Evaluation: 06/23/18 Time of Evaluation: 15:08 Objective - Vital Signs/Intake and Output Vital Signs (last 24 hours): Temp Pulse Resp BP Pulse Ox 98.5 F 50 L 18 120/52 L 97 06/23/18 12:50 06/23/18 12:50 06/23/18 12:50 06/23/18 12:50 06/23/18 12:50 - Medications Medications: Current Medications Acetaminophen (Tylenol 325mg Tab) 650 mg PO Q6 PRN PRN Reason: Pain, Mild (1-3) Last Admin: 06/23/18 09:50 Dose: 650 mg Dicyclomine HCl (Bentyl) 10 mg PO QID [facility] Last Admin: 06/23/18 12:46 Dose: 10 mg Ceftriaxone Sodium 1 gm/ (Sodium Chloride) 100 mls @ 100 mls/hr IVPB DAILY [facility]; Protocol Last Admin: 06/23/18 09:51 Dose: 100 mls/hr Lactulose (Enulose) 20 gm PO Q12 PRN PRN Reason: Constipation Pantoprazole Sodium (Protonix Inj) 40 mg IVP DAILY [facility] Last Admin: 06/23/18 09:50 Dose: 40 mg Sucralfate (Carafate Oral Susp) 1 gm PO ACHS [facility] Last Admin: 06/23/18 12:46 Dose: 1 gm Tramadol HCl (Ultram) 50 mg PO Q12 PRN PRN Reason: Pain, moderate (4-7) Last Admin: 06/22/18 19:59 Dose: 50 mg - Labs Labs: 06/23/18 11:27 06/23/18 11:27 PT 11.7 Seconds (9.8-13.1) 06/21/18 01:05 INR 1.0 06/21/18 01:05 APTT 34.3 Seconds (25.6-37.1) 06/21/18 01:05 Assessment and Plan (1) Bradycardia Status: Acute (2) Chest pain Status: Acute (3) Dyspnea Status: Acute (4) Hx of hepatic disease Status: Acute (5) Tattoo of skin Status: Acute (6) Cachexia Status: Acute (7) Normocytic anemia Status: Acute
[2018-06-23 17:05] LABS: SOURCE URINE
[2018-06-24] MEDS ORDERED: Morphine 4 MG/ML VIAL ONE (03:55)
[2018-06-24 04:30] LABS: BLOOD UREA NITROGEN 4 mg/dl (7-17); CALCIUM 9.6 mg/dL (8.4-10.2); GFR NON-AFRICAN AMERICAN > 60
[2018-06-24 04:33] LABS: BASO % 0.1 % (0.0-2.0); EOS # 0.1 K/uL (0.0-0.7); EOS % 1.5 % (0.0-4.0); HEMOGLOBIN 12.6 g/dL (12.0-16.0); LYMPH # 2.3 K/uL (1.0-4.3); LYMPH % 38.7 % (20.0-40.0); MEAN CELL VOLUME 86.6 fl (81.0-99.0); MEAN CORPUSCULAR HEMOGLOBIN 28.1 pg (27.0-31.0); MEAN CORPUSCULAR HGB CONC 32.5 g/dL (33.0-37.0); MEAN PLATELET VOLUME 10.6 fl (7.2-11.7); MONO # 0.5 K/uL (0.0-0.8); MONO % 8.8 % (0.0-10.0); NEUT % 50.9 % (50.0-75.0); NRBC % 0.1 % (0.0-0.0); RBC 4.49 Mil/uL (3.80-5.20); RED CELL DISTRIBUTION WIDTH 13.3 % (11.5-14.5); WHITE BLOOD COUNT 5.9 K/uL (4.8-10.8)
--- NOTE | 2018-06-24 04:39 | PCM.RRT ---
<Amanda Nagy - Last Filed: 06/24/18 04:45> NIHSS Stroke Scale - How Severe is the Stoke Level of Consciousness: 0=Alert LOC to Questions: 0=Both comments correct LOC to commands: 0=Obeys both correctly Best Gaze: 0=Normal Visual: 0=No visual loss Facial: 0=Normal Motor Arm - Left: 3=No effort against gravity (falls immediately) Motor Arm - Right: 2=Falls before 10 sec Motor Leg - Left: 3=No effort against gravity (falls immediately) Motor Leg - Right: 2=Falls before 5 sec Limb Ataxia: 0=Absent Sensory: 1=Mild to moderate loss Best Language: 0=No aphasia Dysarthia: 0=Normal articulation Extinction & Inattention (Neglect): 0=Normal, no object Score: 11 <Xin Andersonekah - Last Filed: 06/24/18 05:21> I.Reason for [employer] - A) Acute Change in Patient: Subjective: [employer] Time:3:51am [employer] Location:[facility] [employer] Arrival:3:53am S: Pt is a 32 yo F [employer] was called for L sided numbness/weakness chest pain, on arrival patient was in acute distress, tachypneic, tearful, endorsing chest pain. Nurse states while she was taking BP pt passed out for a few seconds no response to sternal rub spontaneously regained consciousness no incontinence or postictal back to baseline vital signs normal. O: [employer] Vitals: T:97.7 BP: 156/98 HR:78 RR:21 O2 sat 99% on 3L NC General:Lying in bed in acute distress, Nervous, Anxious, tachypneic, tearful HEENT:NCAT, EOMI Cardiac:+ S1S2, no m/r/g Resp: + CTA, tachypneic no wheezing rales or rhonchi Abdo:Soft nontender nondistended Neuro: No facial deficits, CN 2-12 intact, L UE fell straight forward and not to the face when lifted, R UE was able to be guided to bed after lifted, PORSHA everett, L leg partially held up, pt mild sensory defect, Babinski negative B/L, AAOx3, cognitively intact. A/P: Unlikely to be a stroke due to non specific non focal deficits. Unlikely to be seizure as noted by RN passed out for a few seconds unresponsive to Sternal rub, awake when light flashed into eyes, not incontinent or post ictal. [employer] intervention: CT of head w/out contrast Cervical CT w/out contrast CT Angio ABG- with shock panel- Significant for Resp alkalosis- on 2L NC Troponins EKG- NSR-HR 92 Ativan 0.25mg Stat ASA 325 Morphine AIWA monitor Consider Neurology consult [employer] Outcome:[employer] ended when pt hemodynamically stable Events [employer] vitals:BP: 120/69, HR 46, O2Sat 100% 2 L [employer] end:4:19am [employer] Leader:Dr. Zach Bender [employer] residents:Dr. Amanda Nagy, Dr. Willow Anderson <Zach Bender P - Last Filed: 06/24/18 07:07> [employer] Nurse Assessment - Vital Signs Vital Signs: Rapid Response Vital Sign Blood Pressure 128/64 Pulse Rate 60 Respiratory Rate 22 Temperature 97.7 F Oxygen Saturation 99 - Vital Signs at end of [employer] Vital Signs at end of [employer]: Rapid Response End Vital Sign Blood Pressure 120/69 Pulse Rate 46 Respiratory Rate 20 Temperature 97.7 F O2 Sat by Pulse Oximetry 100 Attending/Attestation - Attestation I have personally seen and examined this patient.: Yes I have fully participated in the care of the patient.: Yes I have reviewed all pertinent clinical information, including history, physical exam and plan: Yes Notes (Text): 06/24/18 07:02 Patient passed out in front of the nurse, then suddenly responded with flash of light, c/o not feeling the left side, not being able to move the left side and weak in the right side, complained of chest pain, patient had no facial weakness, no difficulty in speech, oriented x3 the picture didn't match any specific patten. CT head, Chest CTA and cervical spine CT was negative. When patient came back form CT in short time she was moving limbs without difficulty. Primary team has been notified, neurology and psych was consulted.
[2018-06-24] MEDS ORDERED: Iodixanol 320 MG/ML 100 ML BOTTLE IV ONE ×2 (04:46→14:30)
[2018-06-24] MEDS ORDERED: Sodium Chloride 0.9% 50 ML IV ONE ×2 (04:46→14:30)
[2018-06-24 04:48] LABS: ABG ALLEN TEST YES; ARTERIAL BLOOD GAS HCO3 27.7 mmol/L (21-28); ARTERIAL BLOOD GAS O2 SAT 99.8 % (95-98); ARTERIAL BLOOD GAS PCO2 29 mm/Hg (35-45); ARTERIAL BLOOD GAS PH 7.55 (7.35-7.45); ARTERIAL BLOOD GAS PO2 150 mm/Hg (80-100); ARTERIAL BLOOD GAS TCO2 26.3 mmol/L (22-28)
[2018-06-24] MEDS ORDERED: Aspirin 325 mg EC Tablets PO STA (04:48)
--- NOTE | 2018-06-24 05:53 | CP.PCM.PN ---
Subjective - Date & Time of Evaluation Date of Evaluation: 06/22/18 Time of Evaluation: 17:00 - Subjective Subjective: Patient continues to have vague abd pain mostly epigastric. CT scan showed gallstones and bilateral nonobstructive renal stones. Has no fever Tolerated regular meals last night. No change in stool color. Pulse are in the lower 50's Not on any medication causing bradycardia. Objective - Vital Signs/Intake and Output Vital Signs (last 24 hours): Temp Pulse Resp BP Pulse Ox 97.7 F 54 L 20 126/78 96 06/24/18 05:00 06/24/18 05:00 06/24/18 05:00 06/24/18 05:00 06/24/18 05:00 - Medications Medications: Current Medications Acetaminophen (Tylenol 325mg Tab) 650 mg PO Q6 PRN PRN Reason: Pain, Mild (1-3) Last Admin: 06/23/18 09:50 Dose: 650 mg Dicyclomine HCl (Bentyl) 10 mg PO QID [facility] Last Admin: 06/23/18 21:12 Dose: 10 mg Ceftriaxone Sodium 1 gm/ (Sodium Chloride) 100 mls @ 100 mls/hr IVPB DAILY [facility]; Protocol Last Admin: 06/23/18 09:51 Dose: 100 mls/hr Lactulose (Enulose) 20 gm PO Q12 PRN PRN Reason: Constipation Pantoprazole Sodium (Protonix Inj) 40 mg IVP DAILY [facility] Last Admin: 06/23/18 09:50 Dose: 40 mg Sucralfate (Carafate Oral Susp) 1 gm PO ACHS [facility] Last Admin: 06/23/18 21:12 Dose: 1 gm Tramadol HCl (Ultram) 50 mg PO Q12 PRN PRN Reason: Pain, moderate (4-7) Last Admin: 06/23/18 22:42 Dose: 50 mg - Labs Labs: 06/24/18 04:03 06/24/18 04:03 PT 11.7 Seconds (9.8-13.1) 06/21/18 01:05 INR 1.0 06/21/18 01:05 APTT 34.3 Seconds (25.6-37.1) 06/21/18 01:05 - Head Exam Head Exam: NORMAL INSPECTION - Eye Exam Eye Exam: Normal appearance - ENT Exam ENT Exam: Mucous Membranes Moist - Respiratory Exam Respiratory Exam: Clear to Ausculation Bilateral - Cardiovascular Exam Cardiovascular Exam: REGULAR RHYTHM - GI/Abdominal Exam GI & Abdominal Exam: Soft, Tenderness Assessment and Plan (1) Gastritis Status: Acute (2) Gallstones Status: Acute (3) Abdominal pain Status: Acute (4) Bradycardia Status: Acute (5) Nephrolithiasis Status: Acute - Assessment and Plan (Free Text) Plan: Start carafate Protonix kept on NPO follow up with GI BLOCK HACKER eval.
--- NOTE | 2018-06-24 05:58 | CP.PCM.PN ---
Subjective - Date & Time of Evaluation Date of Evaluation: 06/23/18 Time of Evaluation: 16:00 - Subjective Subjective: Patient is stable Continues to have benign bradycardia at 50's HR Has less abd pain Seen by SUPERINTENDENT JOB and patient was cleared by SUPERINTENDENT JOB Objective - Vital Signs/Intake and Output Vital Signs (last 24 hours): Temp Pulse Resp BP Pulse Ox 97.7 F 54 L 20 126/78 96 06/24/18 05:00 06/24/18 05:00 06/24/18 05:00 06/24/18 05:00 06/24/18 05:00 - Medications Medications: Current Medications Acetaminophen (Tylenol 325mg Tab) 650 mg PO Q6 PRN PRN Reason: Pain, Mild (1-3) Last Admin: 06/23/18 09:50 Dose: 650 mg Dicyclomine HCl (Bentyl) 10 mg PO QID SANJEEV Last Admin: 06/23/18 21:12 Dose: 10 mg Ceftriaxone Sodium 1 gm/ (Sodium Chloride) 100 mls @ 100 mls/hr IVPB DAILY SANJEEV; Protocol Last Admin: 06/23/18 09:51 Dose: 100 mls/hr Lactulose (Enulose) 20 gm PO Q12 PRN PRN Reason: Constipation Pantoprazole Sodium (Protonix Inj) 40 mg IVP DAILY SANJEEV Last Admin: 06/23/18 09:50 Dose: 40 mg Sucralfate (Carafate Oral Susp) 1 gm PO ACHS SANJEEV Last Admin: 06/23/18 21:12 Dose: 1 gm Tramadol HCl (Ultram) 50 mg PO Q12 PRN PRN Reason: Pain, moderate (4-7) Last Admin: 06/23/18 22:42 Dose: 50 mg - Labs Labs: 06/24/18 04:03 06/24/18 04:03 PT 11.7 Seconds (9.8-13.1) 06/21/18 01:05 INR 1.0 06/21/18 01:05 APTT 34.3 Seconds (25.6-37.1) 06/21/18 01:05 - Head Exam Head Exam: NORMAL INSPECTION - Eye Exam Eye Exam: Normal appearance - Respiratory Exam Respiratory Exam: Clear to Ausculation Bilateral - Cardiovascular Exam Cardiovascular Exam: Bradycardia, REGULAR RHYTHM - GI/Abdominal Exam GI & Abdominal Exam: Normal Bowel Sounds - Neurological Exam Neurological Exam: Awake, Oriented x3 Assessment and Plan (1) Gastritis Status: Acute (2) Gallstones Status: Acute (3) Abdominal pain Status: Acute (4) Bradycardia Status: Acute (5) Nephrolithiasis Status: Acute - Assessment and Plan (Free Text) Plan: Con tmeds DC plans for AM will clarify with cardiology re plans Follow up with GI as outpatient.
--- NOTE | 2018-06-24 07:31 | CT ---
Date of service: 06/24/2018 PROCEDURE: CT Cervical Spine without contrast HISTORY: L side numbness COMPARISON: None available. TECHNIQUE: Axial computed tomography images were obtained of the cervical spine without the use of intravenous contrast. Coronal and sagittal reformatted images were created and reviewed. Radiation dose: Total exam DLP = 214 mGy-cm. This CT exam was performed using one or more of the following dose reduction techniques: Automated exposure control, adjustment of the mA and/or kV according to patient size, and/or use of iterative reconstruction technique. FINDINGS: VERTEBRAE: No fracture. Normal alignment. No destructive bony lesion. A tiny sliver like ossification borders the left lamina spinous process junction on axial series 3, image 30 this is at the C5-6 level. This is not believed to be clinically significant. DISCS/SPINAL CANAL/NEURAL FORAMINA: No significant central canal or neural foraminal stenosis. Discs heights are grossly preserved. PARASPINAL SOFT TISSUES: Unremarkable. OTHER FINDINGS: None. IMPRESSION: Unremarkable CT of the cervical spine. Small stenosis. No gross soft tissue pathology no Concordant results (preliminary interpretation) provided by [employer].
--- NOTE | 2018-06-24 07:45 | CARD ---
APPROVED REPORT Date of service: 06/24/2018 EKG Measurement Heart [id number] <Conclusion> Sinus bradycardia with marked sinus arrhythmia Otherwise normal ECG
--- NOTE | 2018-06-24 08:01 | CT ---
Date of service: 06/24/2018 PROCEDURE: CT Chest with contrast (Pulmonary Angiogram) HISTORY: dyspnea, CP COMPARISON: None available. TECHNIQUE: Axial computed tomography images were obtained of the chest in the pulmonary arterial phase of enhancement. Coronal and sagittal reformatted images were created and reviewed. Intravenous contrast dose: 85 mL of Visipaque 320 Radiation dose: Total exam DLP = 239 mGy-cm. This CT exam was performed using one or more of the following dose reduction techniques: Automated exposure control, adjustment of the mA and/or kV according to patient size, and/or use of iterative reconstruction technique. FINDINGS: PULMONARY ARTERIES: Unremarkable. No pulmonary embolism. AORTA: No acute findings. No thoracic aortic aneurysm. No aortic atherosclerotic calcification or mural plaque present. LUNGS: Dependant bibasilar subpleural subsegmental atelectatic changes. No nodule, or mass or additional pulmonary consolidation. PLEURAL SPACES: Unremarkable. No effusion or pneumothorax. HEART: Unremarkable. No cardiomegaly. No significant pericardial effusion. There is absence of aortic atherosclerotic calcification and mural plaque on this cross-sectional study. LYMPH NODES: No lymphadenopathy. BONES, CHEST WALL: Unremarkable. No fracture or destructive lesion OTHER FINDINGS: Unremarkable. IMPRESSION: . No pulmonary embolus.Dependant bibasilar subpleural subsegmental atelectatic changes. Concordant results (preliminary interpretation) provided by [facility].
[2018-06-24] MEDS: Sucralfate 1 gm/10 ml Oral Susp UD PO SCH ×4 (10:03→22:26)
--- NOTE | 2018-06-24 11:19 | CP.PCM.PN ---
Subjective - Date & Time of Evaluation Date of Evaluation: 06/24/18 Time of Evaluation: 11:17 - Subjective Subjective: GI Progress note- Dr. Gaines Patient seen and examined at bedside. 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 patient was given morphine and ativan. CTH, C-Spine, and chest were negative. Symptoms had resolved. This AM patient states abdominal pain is better. able to move all 4 extremities. Denies blood in stool, bloody emesis, nausea, vomiting Objective - Vital Signs/Intake and Output Vital Signs (last 24 hours): Temp Pulse Resp BP Pulse Ox 98.2 F 50 L 18 109/60 99 06/24/18 08:09 06/24/18 09:00 06/24/18 08:09 06/24/18 08:09 06/24/18 08:09 - Medications Medications: Current Medications Acetaminophen (Tylenol 325mg Tab) 650 mg PO Q6 PRN PRN Reason: Pain, Mild (1-3) Last Admin: 06/23/18 09:50 Dose: 650 mg Dicyclomine HCl (Bentyl) 10 mg PO QID [facility] Last Admin: 06/24/18 10:03 Dose: 10 mg Ceftriaxone Sodium 1 gm/ (Sodium Chloride) 100 mls @ 100 mls/hr IVPB DAILY SANJEEV; Protocol Last Admin: 06/24/18 10:04 Dose: 100 mls/hr Lactulose (Enulose) 20 gm PO Q12 PRN PRN Reason: Constipation Pantoprazole Sodium (Protonix Inj) 40 mg IVP DAILY SANJEEV Last Admin: 06/24/18 10:05 Dose: 40 mg Sucralfate (Carafate Oral Susp) 1 gm PO ACHS SANJEEV Last Admin: 06/24/18 10:03 Dose: 1 gm Tramadol HCl (Ultram) 50 mg PO Q12 PRN PRN Reason: Pain, moderate (4-7) Last Admin: 06/24/18 10:09 Dose: 50 mg - Labs Labs: 06/24/18 04:03 06/24/18 04:03 PT 11.7 Seconds (9.8-13.1) 06/21/18 01:05 INR 1.0 06/21/18 01:05 APTT 34.3 Seconds (25.6-37.1) 06/21/18 01:05 - Constitutional Appears: Non-toxic, No Acute Distress - Head Exam Head Exam: ATRAUMATIC - Eye Exam Eye Exam: EOMI. absent: Scleral icterus - ENT Exam ENT Exam: Mucous Membranes Moist - Respiratory Exam Respiratory Exam: NORMAL BREATHING PATTERN. absent: Accessory Muscle Use, Respiratory Distress - Cardiovascular Exam Cardiovascular Exam: Bradycardia, +S1, +S2. absent: Tachycardia - GI/Abdominal Exam GI & Abdominal Exam: Soft, Tenderness (mild diffuse tenderness). 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 Gaines GI attending PGY2
--- NOTE | 2018-06-24 13:09 | MRI ---
Date of service: 06/24/2018 PROCEDURE: MRI BRAIN WITHOUT CONTRAST HISTORY: syncope, L numbness COMPARISON: Noncontrast head CT from 06/24/2018. TECHNIQUE: Multiplanar, multisequence MR images of the brain were obtained without intravenous contrast enhancement. FINDINGS: HEMORRHAGE: No subarachnoid or intraventricular hemorrhage. DWI: No evidence of an acute or early subacute infarction. BRAIN PARENCHYMA: There is linear T2 and FLAIR hyperintense signal in the right frontal subcortical white matter with corresponding increased magnetic susceptibility on gradient sequence. There is no mass, mass effect or abnormal extra-axial fluid collection. The midline sagittal structures are normal. VENTRICLES: The ventricles are normal in size, shape and configuration. CRANIUM: There is normal bone marrow signal pattern ORBITS: Grossly unremarkable. PARANASAL SINUSES/MASTOIDS: Predominantly clear. VASCULAR SYSTEM: There are normal signal voids in the larger intracranial arteries. OTHER FINDINGS: None. IMPRESSION: Abnormal linear signal intensity in the right frontal subcortical white matter is nonspecific, the differential considerations include petechial hemorrhage and venous thrombosis with hemorrhage. MRI of the brain without and with contrast and a repeat CT scan is recommended for further evaluation. Important findings were discussed with Dr. Ruy Pfeiffer on 06/24/2018 at 1 p.m.
--- NOTE | 2018-06-24 13:12 | CT ---
Date of service: 06/24/2018 PROCEDURE: CT HEAD WITHOUT CONTRAST. HISTORY: L sided numbness COMPARISON: None available. TECHNIQUE: Axial computed tomography images were obtained through the head/brain without intravenous contrast. Radiation dose: Total exam DLP = 794.59 mGy-cm. This CT exam was performed using one or more of the following dose reduction techniques: Automated exposure control, adjustment of the mA and/or kV according to patient size, and/or use of iterative reconstruction technique. FINDINGS: HEMORRHAGE: No intracranial hemorrhage. BRAIN: Hanna-white matter differentiation is preserved. There is no mass, mass effect or abnormal extra-axial fluid collection. There is no territorial infarction. The midline sagittal structures are normal. VENTRICLES: The ventricles are normal in size, shape and configuration. CALVARIUM: There is no calvarial fracture or extracranial soft tissue swelling. PARANASAL SINUSES: Predominantly clear. MASTOID AIR CELLS: Predominantly clear. OTHER FINDINGS: None. IMPRESSION: No acute intracranial abnormality. A preliminary report was provided by [employer].
--- NOTE | 2018-06-24 13:38 | CP.PCM.CON ---
History of Present Illness - History of Present Illness History of Present Illness: consult requested for depression pt is a 32F pmhx significant for ovarian cysts presents to [facility] ED w/ generalized abdominal pain localized in lower abdomen that has been intermittent over the last month. Patient has been to numerous hospitals and ER with attempt for workup including [place]. pt reported has no previous formal psychiatric diagnosis or treatment ,reported for past few months has been increasingly depressed as she has been unable to work due to her current medical problems, this has taken an impact on her financial status pt reported episodes of tearfulness, feeling down, decreased appetite, no changes in sleep, denied any current suicidal or homicidal ideation, denied perceptual disturbances, thought form was coherent alert awake ox3, reported ocasional use of cannabis Past Patient History - Infectious Disease Hx of Infectious Diseases: None - Past Medical History & Family History Past Medical History?: Yes - Past Social History Smoking Status: Never Smoked - CARDIAC Hx Cardiac Disorders: No - PULMONARY Hx Respiratory Disorders: No - NEUROLOGICAL Hx Neurological Disorder: No - HEENT Hx HEENT Problems: No - RENAL Hx Chronic Kidney Disease: No - ENDOCRINE/METABOLIC Hx Endocrine Disorders: No - HEMATOLOGICAL/ONCOLOGICAL Hx Blood Disorders: No - INTEGUMENTARY Hx Dermatological Problems: No - MUSCULOSKELETAL/RHEUMATOLOGICAL Hx Musculoskeletal Disorders: Yes Hx Falls: No Other/Comment: Scoliosis - GASTROINTESTINAL Hx Gall Bladder Disease: Yes (''LIQUID AROUND GALLBLADDER'') - GENITOURINARY/GYNECOLOGICAL Hx Genitourinary Disorders: Yes Other/Comment: Lt ovarian cyst. at age 15. 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 Rt ovarian tumor removal - ANESTHESIA Hx Anesthesia: Yes Hx Anesthesia Reactions: No Hx Malignant Hyperthermia: No Meds Allergies/Adverse Reactions: Allergies Allergy/AdvReac Type Severity Reaction Status Date / Time No Known Allergies Allergy Verified 06/21/18 00:18 - Medications Medications: Current Medications Acetaminophen (Tylenol 325mg Tab) 650 mg PO Q6 PRN PRN Reason: Pain, Mild (1-3) Last Admin: 06/23/18 09:50 Dose: 650 mg Dicyclomine HCl (Bentyl) 10 mg PO QID SANJEEV Last Admin: 06/24/18 10:03 Dose: 10 mg Ceftriaxone Sodium 1 gm/ (Sodium Chloride) 100 mls @ 100 mls/hr IVPB DAILY SANJEEV; Protocol Last Admin: 06/24/18 10:04 Dose: 100 mls/hr Lactulose (Enulose) 20 gm PO Q12 PRN PRN Reason: Constipation Pantoprazole Sodium (Protonix Inj) 40 mg IVP DAILY SANJEEV Last Admin: 06/24/18 10:05 Dose: 40 mg Sucralfate (Carafate Oral Susp) 1 gm PO ACHS SANJEEV Last Admin: 06/24/18 10:03 Dose: 1 gm Tramadol HCl (Ultram) 50 mg PO Q12 PRN PRN Reason: Pain, moderate (4-7) Last Admin: 06/24/18 10:09 Dose: 50 mg Results - Vital Signs Recent Vital Signs: Last Vital Signs Temp 98.4 F 06/24/18 11:57 Pulse 54 L 06/24/18 11:57 Resp 18 06/24/18 11:57 BP 118/69 06/24/18 11:57 Pulse Ox 98 06/24/18 11:57 - Labs Result Diagrams: 06/24/18 04:03 06/24/18 04:03 Labs: Laboratory Results - last 24 hr 06/22/18 06/22/18 06/23/18 04:30 04:30 04:20 WBC RBC Hgb Hct MCV MCH MCHC RDW Plt Count MPV Neut % (Auto) Lymph % (Auto) [place] % (Auto) Eos % (Auto) Baso % (Auto) Neut # (Auto) Lymph # (Auto) [place] # (Auto) Eos # (Auto) Baso # (Auto) pCO2 pO2 HCO3 ABG pH ABG Total CO2 ABG O2 Saturation ABG Base Excess Meet Test ABG Potassium A-a O2 Difference Glucose Lactate FiO2 Sodium Potassium Chloride Carbon Dioxide Anion Gap BUN Creatinine Est GFR ( Amer) Est GFR (Non-Af Amer) Random Glucose Lactic Acid Calcium Troponin I Arterial Blood Potassium Stool Source Urine Lyme Disease Screen <0.90 HIV 1&2 Antibody Screen Negative Schistosoma Detection TNP 06/24/18 06/24/18 06/24/18 04:03 04:03 04:15 WBC 5.9 RBC 4.49 Hgb 12.6 Hct 38.9 MCV 86.6 MCH 28.1 MCHC 32.5 L RDW 13.3 Plt Count 193 MPV 10.6 Neut % (Auto) 50.9 Lymph % (Auto) 38.7 [place] % (Auto) 8.8 Eos % (Auto) 1.5 Baso % (Auto) 0.1 Neut # (Auto) 3.0 Lymph # (Auto) 2.3 [place] # (Auto) 0.5 Eos # (Auto) 0.1 Baso # (Auto) 0.0 pCO2 29 L pO2 150 H HCO3 27.7 ABG pH 7.55 H ABG Total CO2 26.3 ABG O2 Saturation 99.8 H ABG Base Excess 3.6 H Meet Test Yes ABG Potassium 3.6 A-a O2 Difference 42.0 Glucose 88 Lactate 1.2 FiO2 32.0 Sodium 143 140.0 Potassium 3.6 Chloride 109 H 113.0 H Carbon Dioxide 25 Anion Gap 13 BUN 4 L Creatinine 0.6 L Est GFR ( Amer) > 60 Est GFR (Non-Af Amer) > 60 Random Glucose 87 Lactic Acid Calcium 9.6 Troponin I < 0.0120 Arterial Blood Potassium 3.6 Stool Source Lyme Disease Screen HIV 1&2 Antibody Screen Schistosoma Detection 06/24/18 04:27 WBC RBC Hgb Hct MCV MCH MCHC RDW Plt Count MPV Neut % (Auto) Lymph % (Auto) [place] % (Auto) Eos % (Auto) Baso % (Auto) Neut # (Auto) Lymph # (Auto) [place] # (Auto) Eos # (Auto) Baso # (Auto) pCO2 pO2 HCO3 ABG pH ABG Total CO2 ABG O2 Saturation ABG Base Excess Meet Test ABG Potassium A-a O2 Difference Glucose Lactate FiO2 Sodium Potassium Chloride Carbon Dioxide Anion Gap BUN Creatinine Est GFR ( Amer) Est GFR (Non-Af Amer) Random Glucose Lactic Acid 1.1 Calcium Troponin I Arterial Blood Potassium Stool Source Lyme Disease Screen HIV 1&2 Antibody Screen Schistosoma Detection Assessment & Plan - Assessment and Plan (Free Text) Assessment: 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
--- NOTE | 2018-06-24 15:19 | CT ---
Date of service: 06/24/2018 PROCEDURE: CTA HEAD AND NECK WITH CONTRAST HISTORY: CVA COMPARISON: Noncontrast head CT and MRI brain without contrast from 06/24/2018. TECHNIQUE: Initial noncontrast head CT was performed. Subsequently, CT angiogram of the head and neck were performed after the intravenous administration of 80 mL of Omnipaque 350. Contiguous 1.5mm thick images were obtained in the axial plane of the neck. 2-D coronal and sagittal MPR images were obtained. Imaging postprocessing was performed with 3-D images also obtained. A delayed contrast head CT was also obtained. This CT exam was performed using one or more of the following dose reduction techniques: Automated exposure control, adjustment of the mA and/or kV according to patient size, and/or use of iterative reconstruction technique. Contrast dose: 99 mL Visipaque 320 Radiation dose: Total exam DLP = 425.02 mGy-cm. FINDINGS: HEAD: There is and asymmetric linear enhancing structure in the right frontal subcortical white matter corresponding to the abnormality seen on MRI examination. There is also subtle branching irregularity at its termination in the deep white matter. Right: The intracranial internal carotid artery, and anterior and middle cerebral arteries are widely patent. The A1 segment is hypoplastic, an anatomic variant. Left: The intracranial internal carotid artery, and anterior and middle cerebral arteries are widely patent. Posterior circulation: The visualized intracranial vertebral arteries, basilar artery and posterior cerebral arteries are widely patent. There is no endoluminal filling defect to suggest thrombus. There is no intracranial saccular aneurysm. NECK: There is a 2 vessel aortic arch with common origin of the innominate and left common carotid arteries. There is no stenosis at the origins of the great vessels at the level of the aortic arch. No atherosclerotic calcification or mural plaque present. Right Carotid: On the right, the common carotid, internal carotid and external carotid arteries are widely patent. There is no hemodynamically significant stenosis in the internal carotid artery by NASCET criteria. Left Carotid: On the left, the common carotid, internal carotid and external carotid arteries are widely patent. There is no hemodynamically significant stenosis in the internal carotid artery by NASCET criteria. The vertebral arteries are widely patent. The left vertebral artery is hypoplastic, an anatomic variant. The visualized soft tissues of the neck are normal. The visualized brain and cervical spine are within normal limits. The lung apices are clear. IMPRESSION: 1. 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 As such, follow-up MRI in 3-6 month interval without and with intravenous contrast is recommended to assess stability of this finding. 2. No evidence of endoluminal thrombus,occlusion or definite significant stenosis in the intracranial arteries. 3. No evidence of hemodynamically significant stenosis in the internal carotid arteries. 4. Patent bilateral vertebral arteries.
--- NOTE | 2018-06-24 21:39 | CP.PCM.CON ---
History of Present Illness - History of Present Illness History of Present Illness: As per chart: patient was admitted about a week ago with the following history: 32F pmhx significant for ovarian cysts presents to [facility] ED w/ generalized abdominal pain localized in lower abdomen that has been intermittent over the last month. Patient has been to numerous hospitals and ER with attempt for workup including [facility] and [facility]. Patient was found to have trace fluid in abdomen and some intestinal wall thickening, gallstones. Patient now states pain has worsened and made it to the point of unable to walk, in addition to shortness of breath. Patient obtained inhaler from PMD 2 days ago with minimal benefit. Of note patient admits to having vaginal bleeding irregular from menstrual cycle. FDLMP 06/[address] scan showed constipation stool throughout entire colon, trace free fluid in pelvis. ECHO EF of 60-65%, Transvag US trace free fluid, good blood flow to b/l ovaries PMH: stated above PSH: Ovarian cyst removal x2 ALL: NKDA SocialHx: Former tobacco use quit 3 years ago, denies ETOH, social marijuana use for back pain 12 pt ROS conducted, negative otherwise stated above Yesterday, there was an [employer] called and patient had left sided weakness. MRI brain was done and showed no acute stroke, but a linear lesion that may have been old hemorrhage. On exam: significant for left arm weakness 4-/5. Rest of the neurological exam is normal. Gait is normal, no ataxia. Past Patient History - Infectious Disease Hx of Infectious Diseases: None - Past Medical History & Family History Past Medical History?: Yes - Past Social History Smoking Status: Never Smoked - CARDIAC Hx Cardiac Disorders: No - PULMONARY Hx Respiratory Disorders: No - NEUROLOGICAL Hx Neurological Disorder: No - HEENT Hx HEENT Problems: No - RENAL Hx Chronic Kidney Disease: No - ENDOCRINE/METABOLIC Hx Endocrine Disorders: No - HEMATOLOGICAL/ONCOLOGICAL Hx Blood Disorders: No - INTEGUMENTARY Hx Dermatological Problems: No - MUSCULOSKELETAL/RHEUMATOLOGICAL Hx Musculoskeletal Disorders: Yes Hx Falls: No Other/Comment: Scoliosis - GASTROINTESTINAL Hx Gall Bladder Disease: Yes (''LIQUID AROUND GALLBLADDER'') - GENITOURINARY/GYNECOLOGICAL Hx Genitourinary Disorders: Yes Other/Comment: Lt ovarian cyst. at age 15. 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 Rt ovarian tumor removal - ANESTHESIA Hx Anesthesia: Yes Hx Anesthesia Reactions: No Hx Malignant Hyperthermia: No Meds Allergies/Adverse Reactions: Allergies Allergy/AdvReac Type Severity Reaction Status Date / Time No Known Allergies Allergy Verified 06/21/18 00:18 - Medications Medications: Current Medications Acetaminophen (Tylenol 325mg Tab) 650 mg PO Q6 PRN PRN Reason: Pain, Mild (1-3) Last Admin: 06/23/18 09:50 Dose: 650 mg Dicyclomine HCl (Bentyl) 10 mg PO QID [facility] Last Admin: 06/24/18 17:50 Dose: 10 mg Gabapentin (Neurontin) 300 mg PO BID [facility] Last Admin: 06/24/18 17:50 Dose: 300 mg Ceftriaxone Sodium 1 gm/ (Sodium Chloride) 100 mls @ 100 mls/hr IVPB DAILY [facility]; Protocol Last Admin: 06/24/18 10:04 Dose: 100 mls/hr Lactulose (Enulose) 20 gm PO Q12 PRN PRN Reason: Constipation Pantoprazole Sodium (Protonix Inj) 40 mg IVP DAILY [facility] Last Admin: 06/24/18 10:05 Dose: 40 mg Sucralfate (Carafate Oral Susp) 1 gm PO ACHS [facility] Last Admin: 06/24/18 17:50 Dose: 1 gm Tramadol HCl (Ultram) 50 mg PO Q12 PRN PRN Reason: Pain, moderate (4-7) Last Admin: 06/24/18 10:09 Dose: 50 mg Results - Vital Signs Recent Vital Signs: Last Vital Signs Temp 98.4 F 06/24/18 20:14 Pulse 56 L 06/24/18 20:14 Resp 16 06/24/18 20:14 BP 119/73 06/24/18 20:14 Pulse Ox 99 06/24/18 20:14 - Labs Result Diagrams: 06/24/18 04:03 06/24/18 04:03 Labs: Laboratory Results - last 24 hr 06/22/18 06/24/18 06/24/18 04:30 04:03 04:03 WBC 5.9 RBC 4.49 Hgb 12.6 Hct 38.9 MCV 86.6 MCH 28.1 MCHC 32.5 L RDW 13.3 Plt Count 193 MPV 10.6 Neut % (Auto) 50.9 Lymph % (Auto) 38.7 Maries % (Auto) 8.8 Eos % (Auto) 1.5 Baso % (Auto) 0.1 Neut # (Auto) 3.0 Lymph # (Auto) 2.3 Maries # (Auto) 0.5 Eos # (Auto) 0.1 Baso # (Auto) 0.0 pCO2 pO2 HCO3 ABG pH ABG Total CO2 ABG O2 Saturation ABG Base Excess Meet Test ABG Potassium A-a O2 Difference Glucose Lactate FiO2 Sodium 143 Potassium 3.6 Chloride 109 H Carbon Dioxide 25 Anion Gap 13 BUN 4 L Creatinine 0.6 L Est GFR ( Amer) > 60 Est GFR (Non-Af Amer) > 60 Random Glucose 87 Lactic Acid Calcium 9.6 Troponin I < 0.0120 Arterial Blood Potassium Stool Occult Blood Lyme Disease Screen <0.90 06/24/18 06/24/18 06/24/18 04:15 04:27 13:48 WBC RBC Hgb Hct MCV MCH MCHC RDW Plt Count MPV Neut % (Auto) Lymph % (Auto) Maries % (Auto) Eos % (Auto) Baso % (Auto) Neut # (Auto) Lymph # (Auto) Maries # (Auto) Eos # (Auto) Baso # (Auto) pCO2 29 L pO2 150 H HCO3 27.7 ABG pH 7.55 H ABG Total CO2 26.3 ABG O2 Saturation 99.8 H ABG Base Excess 3.6 H Meet Test Yes ABG Potassium 3.6 A-a O2 Difference 42.0 Glucose 88 Lactate 1.2 FiO2 32.0 Sodium 140.0 Potassium Chloride 113.0 H Carbon Dioxide Anion Gap BUN Creatinine Est GFR ( Amer) Est GFR (Non-Af Amer) Random Glucose Lactic Acid 1.1 Calcium Troponin I Arterial Blood Potassium 3.6 Stool Occult Blood Negative Lyme Disease Screen Assessment & Plan - Assessment and Plan (Free Text) Assessment: 32 yr old woman with new left arm weakness that may be new, and MRI showing old linear area of hemorrhage, now with NIHSS of 1. I will order stroke workup, and start her on aspirin. She is also having other cardiac issues that may be contributing. Plan: 1. Start asa 325 mg po daily. 2. ECHO 3. CTA head and neck 4. PErmissive htn 5. lipid profile. Gen simon
--- NOTE | 2018-06-25 01:50 | CON ---
DATE: 06/24/2018 HISTORY OF PRESENT ILLNESS: Mrs. Stephanie Wyatt is a 32-year-old female with a past medical history significant for a traumatic fall, history of syncope and ovarian cyst, who presents to [facility] on the day of admission, 06/21/2018, with generalized abdominal pain localized to the lower abdomen, which has been intermittent and progressive over the last one month. The patient has had multiple admissions to the emergency department including [facility]. In the past, the patient was found to have intestinal wall thickening, but no other definitive workup was done. I have been asked to see her in regards to telemetry findings of intermittent bradycardia with heart rates in the 40s and at times transiently in the 30s. 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 Since that time, the patient had not been feeling well. Approximately 20 days later, the patient while at work had a witnessed episode of poor responsiveness. The patient was supposedly obtunded for a period of 20 to 25 minutes, poorly responsive, although according to her, there were no hemodynamic issues. She did not lose her pulse. She was brought in by EMS from what she recalls [facility], where she was observed for a brief period of time and subsequently discharged. Since that time, the patient has had periods of weakness, intermittent dizziness which has led to disability and not being able to go to work. She has been following up with doctors including neurologist who have had sent her for brain imaging. In a workup for her abdominal pain, the patient does show evidence of significant constipation on a CT of abdomen, no evidence of significant pathology, free fluid is found in the pelvis. The patient was seen in consultation by Dr. Alonso Pizano who did recommend that I be involved in the case because of the issues with transient bradycardia. Of note, this morning, the patient had a rapid response with complaint of left-sided numbness and weakness and supposed loss of consciousness. When the patient was evaluated, the patient was seen to be in acute distress, tachypneic, tearful and having chest pain. Supposedly, the patient had her blood pressure checked, at which point she "passed out and no response to sternal stimulation." On telemetry, she was found to be in normal rhythm with no record of bradycardia and blood pressure was elevated at 156. Workup had been ordered. Neurology also had been called. Echocardiogram, which was done on the day of admission, 06/21/2018, shows normal left ventricular size, normal left ventricular thickness, ejection fraction is 60% to 65%, no ventricular thrombus is seen. RV appears to be of normal size and function. Atrium is normal size and function. Aortic valve appears to be within normal limits. Mitral valve is also within normal limits with a history of prolapse. Tricuspid valve is normal in structure. RVSP is within normal limits. also appeared to be normal. No pericardial effusion is noted. EKG, which was done on 06/24/2018, shows baseline artifact, normal sinus rhythm, 92 beats per minute, normal P-wave morphology, normal R-wave progression, nonspecific ST-T wave changes. This is an EKG from 06/24/2018. This is at 4.58 a.m. around the time of the next event. Subsequent to that, an EKG was done at 7:31 a.m., shows normal sinus rhythm/sinus bradycardia, 51 beats per minute, normal P-wave morphology, normal axis across the precordial leads, without any significant ST or T-wave changes. CT of the chest, which was done on 06/24/2018, shows pulmonary arteries unremarkable without any evidence of pulmonary embolism. Thoracic aorta appears to be within normal limits without any evidence of thoracic aneurysm, dependent bibasilar subpleural segments. On heart exam, no cardiomegaly, no significant pericardial effusion, no atherosclerotic calcification of the aorta. No lymphadenopathy. No bony abnormalities are noted. MRI, which was done on 06/24/2018, shows abnormal linear signal intensity in the right frontal subcortical white matter which is nonspecific. Differentially consideration includes petechial hemorrhage versus venous thrombosis with hemorrhage. MRI of the brain with and without contrast and a repeat CAT scan were recommended for further evaluation. Review of bradycardic episodes which occurred at 12:58 today shows normal sinus rhythm, sinus bradycardia with a heart rate of 45. ASSESSMENT AND PLAN: 1. Bradycardia, likely secondary to increased vagal tone in the setting of intermittent abdominal discomfort and likely hyper-vagal issues. The patient's syncopal history is more likely secondary to some neurologic issue, possible seizure disorder. During her episode this morning when she had a transient loss of consciousness, there was no documentation of bradycardia or hypotension. At this point, I do not believe that she will require chronotropic support in any form. Maybe nerve conduction is likely within normal limits. We will continue to watch on telemetry. 2. History of syncope. The patient's syncopal history again is more consistent with some uncleared neurologic event, again possibly seizures. Workup is being performed at this point with the findings on MRI. Further workup and management as per the medical and neurologic team. 3. Cerebrovascular accident - MRI findings of unclear significance. The patient may require a thromboembolic workup. Carotid ultrasound/Doppler has been ordered to rule out carotid disease. Again, unlikely secondary to the patient's very young age, vasculitis, however, should and could be ruled out. 4. History of fall and head trauma of unclear cause of ongoing dizziness and disability. I have discussed the case at length with the medical team as well as the patient. Thank you for allowing me to participate in the care of your patient. Please do not hesitate to call if you have any question in regards to her care. Rubén Salmon MD cc: Alonso Pizano Do; .
--- NOTE | 2018-06-25 10:32 | US ---
Date of service: 06/24/2018 PROCEDURE: Duplex ultrasound of the carotid and vertebral arteries. HISTORY: cva COMPARISON: None available. TECHNIQUE: Grayscale and duplex Doppler evaluation of the cervical carotid and vertebral arteries were performed. The common carotid, carotid bifurcations and cervical ICA and proximal ECA were evaluated. The vertebral arteries were evaluated for gross patency and direction. FINDINGS: RIGHT CAROTID ARTERIES: Common Carotid Artery: Maximal flow velocity of 78.1 cm/s. Carotid Bifurcation: Normal. Internal Carotid Artery:Normal. Maximal flow velocity of 108.2 cm/s. External Carotid Artery (proximal branches): Maximal flow velocity of 108.2 cm/s. ICA/CCA Ratio: 1.4 LEFT CAROTID ARTERIES: Common Carotid Artery: Maximal flow velocity of 96.3 cm/s. Carotid Bifurcation: Normal. Internal Carotid Artery:Normal. Maximal flow velocity of 61.2 cm/s. External Carotid Artery (proximal branches): Maximal flow velocity of 98.2 cm/s. ICA/CCA Ratio: 1.4 VERTEBRAL ARTERIES: Right Vertebral Artery: Patent. Antegrade flow. Left Vertebral Artery: Patent. Antegrade flow. OTHER FINDINGS: Atherosclerotic calcification present. IMPRESSION: Right ICA degree of stenosis: Less than 50% Left ICA degree of stenosis: Less than 50% Reference Internal Carotid Artery (ICA) Peak Systolic Velocity (PSV) for above: 1. Less than 50% stenosis less than 125 cm/s peak systolic velocity 2. 50-69% stenosis 125-230cm/s peak systolic velocity 3. Greater than 70% but less than near occlusion greater than 230 cm/s peak systolic velocity
[2018-06-25] MEDS: Sucralfate 1 gm/10 ml Oral Susp UD PO SCH ×4 (11:32→22:04)
--- NOTE | 2018-06-25 15:36 | CP.PCM.PN ---
Subjective - Date & Time of Evaluation Date of Evaluation: 06/25/18 Time of Evaluation: 15:35 Objective - Vital Signs/Intake and Output Vital Signs (last 24 hours): Temp Pulse Resp BP Pulse Ox 98.4 F 63 20 118/75 99 06/25/18 12:11 06/25/18 12:11 06/25/18 12:11 06/25/18 12:11 06/25/18 12:11 - Medications Medications: Current Medications Acetaminophen (Tylenol 325mg Tab) 650 mg PO Q6 PRN PRN Reason: Pain, Mild (1-3) Last Admin: 06/23/18 09:50 Dose: 650 mg Aspirin (Aspirin) 325 mg PO DAILY [facility] Last Admin: 06/25/18 09:26 Dose: 325 mg Dicyclomine HCl (Bentyl) 10 mg PO QID [facility] Last Admin: 06/25/18 13:33 Dose: Not Given Gabapentin (Neurontin) 300 mg PO BID [facility] Last Admin: 06/25/18 09:22 Dose: 300 mg Ceftriaxone Sodium 1 gm/ (Sodium Chloride) 100 mls @ 100 mls/hr IVPB DAILY [facility]; Protocol Last Admin: 06/25/18 09:26 Dose: 100 mls/hr Lactulose (Enulose) 20 gm PO Q12 PRN PRN Reason: Constipation Pantoprazole Sodium (Protonix Inj) 40 mg IVP DAILY [facility] Last Admin: 06/25/18 09:22 Dose: 40 mg Sucralfate (Carafate Oral Susp) 1 gm PO ACHS [facility] Last Admin: 06/25/18 11:32 Dose: 1 gm Tramadol HCl (Ultram) 50 mg PO Q12 PRN PRN Reason: Pain, moderate (4-7) Last Admin: 06/24/18 22:31 Dose: 50 mg - Labs Labs: 06/24/18 04:03 06/24/18 04:03 PT 11.7 Seconds (9.8-13.1) 06/21/18 01:05 INR 1.0 06/21/18 01:05 APTT 34.3 Seconds (25.6-37.1) 06/21/18 01:05 Assessment and Plan (1) Bradycardia Status: Acute (2) Chest pain Status: Acute (3) Dyspnea Status: Acute (4) Hx of hepatic disease Status: Acute (5) Tattoo of skin Status: Acute (6) Cachexia Status: Acute (7) Normocytic anemia Status: Acute
--- NOTE | 2018-06-25 16:01 | CARD ---
APPROVED REPORT Date of service: 06/24/2018 EKG Measurement Heart [id number] ID [id number] <Conclusion> Normal sinus rhythm Baseline artifact Otherwise normal ECG
--- NOTE | 2018-06-25 16:20 | PCM.RRT ---
TIPPLE BOSS Nurse Assessment - Situation Location: [address] [place] [id number] Room Number: 407-2 [facility]IP[facility] BOSS Reason for Call: Chest Pain - IV IV Inserted during TIPPLE BOSS?: No - Respiratory Oxygen Delivery Method: Nasal Cannula Received Nebulizer Treatments: No Was the Patient Ventilated with Bag/Mask 100% O2?: No Secretions Suctioned?: No Was the Patient Intubated?: No Was the Patient Placed on a Ventilator?: No - Diagnostic Test Ordered EKG: Yes CPR started during TIPPLE BOSS?: No - Vital Signs Vital Signs: Rapid Response Vital Sign Blood Pressure 132/80 Pulse Rate 75 Respiratory Rate 20 Temperature 98.6 F Oxygen Saturation 100 - Time TIPPLE BOSS Ended Time TIPPLE BOSS Ended: 16:10 - Vital Signs at end of TIPPLE BOSS Vital Signs at end of TIPPLE BOSS: Rapid Response End Vital Sign Blood Pressure 120/69 Pulse Rate 46 Respiratory Rate 20 Temperature 97.7 F O2 Sat by Pulse Oximetry 100 - Recommendations TIPPLE BOSS Level of Care Recommendations: Remain in current setting - Constitutional Appears: Non-toxic - Head Head Exam: ATRAUMATIC, NORMAL INSPECTION - Respiratory Exam Respiratory Exam: Clear to Ausculation Bilateral - Cardiovascular Exam Cardiovascular Exam: +S1, +S2. absent: Murmur - GI/Abdominal Exam GI & Abdominal Exam: Soft, Normal Bowel Sounds - Neurological Exam Neurological Exam: Alert, Awake, Oriented x3 Additional exam: tremulous right hand - Extremities Exam Extremities Exam: absent: Calf Tenderness, Pedal Edema Plan - Assessment of Findings&Treatment Plan RRTcalled by RN chicho of chest pain TIPPLE BOSS Time:4:03pm TIP[facility] Location:[facility] Arrival:4:05pm TIP[facility] BOSS called on 32 yo F because of chest pain. Patient was admitted for further evaluation of abdominal pain and weight loss. Vitals: Temp: 98.6F BP: 132/80,75bpm RR:22 O2 sat 100% on 2L NC General: Laying in supine position, anxious appearing HEENT:AT, NC Cardiac:S1S2, RRR, reproducible chest tenderness Resp: Tachypneic, cta b/l no wheeze Abd:Nondistended, BS+, soft, nontender Neuro: tremor noted in right arm that diminished prior to end of TIPPLE BOSS Psych: mood- anxious Interventions: EKG Ativan 0.25mg 2L of oxygen TIPPLE BOSS end vitals:Temp: 97.7F BP: 120/69, HR 46bpm, O2Sat 100% 2 L TIPPLE BOSS end:4:19pm A/P:32 y/o F admitted for abdominal pain & weight loss, seen and evaluated because of chest pain. -Reproducible chest pain unlikely cardiac in nature -Continue telemetry monitoring
--- NOTE | 2018-06-25 17:50 | CP.PCM.PN ---
Subjective - Date & Time of Evaluation Date of Evaluation: 06/25/18 Time of Evaluation: 10:00 - Subjective Subjective: Patient generally with less abdominal pain though still has epigastric pain and reflux Objective - Vital Signs/Intake and Output Vital Signs (last 24 hours): Temp Pulse Resp BP Pulse Ox 98.4 F 70 17 131/69 100 06/25/18 16:40 06/25/18 16:40 06/25/18 16:40 06/25/18 16:40 06/25/18 16:40 - Medications Medications: Current Medications Acetaminophen (Tylenol 325mg Tab) 650 mg PO Q6 PRN PRN Reason: Pain, Mild (1-3) Last Admin: 06/23/18 09:50 Dose: 650 mg Aspirin (Aspirin) 325 mg PO DAILY [facility] Last Admin: 06/25/18 09:26 Dose: 325 mg Dicyclomine HCl (Bentyl) 10 mg PO QID [facility] Last Admin: 06/25/18 16:31 Dose: 10 mg Gabapentin (Neurontin) 300 mg PO BID [facility] Last Admin: 06/25/18 16:31 Dose: 300 mg Ceftriaxone Sodium 1 gm/ (Sodium Chloride) 100 mls @ 100 mls/hr IVPB DAILY [facility]; Protocol Last Admin: 06/25/18 09:26 Dose: 100 mls/hr Lactulose (Enulose) 20 gm PO Q12 PRN PRN Reason: Constipation Pantoprazole Sodium (Protonix Inj) 40 mg IVP DAILY [facility] Last Admin: 06/25/18 09:22 Dose: 40 mg Sucralfate (Carafate Oral Susp) 1 gm PO ACHS [facility] Last Admin: 06/25/18 16:31 Dose: 1 gm Tramadol HCl (Ultram) 50 mg PO Q12 PRN PRN Reason: Pain, moderate (4-7) Last Admin: 06/25/18 16:34 Dose: 50 mg - Labs Labs: 06/24/18 04:03 06/24/18 04:03 PT 11.7 Seconds (9.8-13.1) 06/21/18 01:05 INR 1.0 06/21/18 01:05 APTT 34.3 Seconds (25.6-37.1) 06/21/18 01:05 - Head Exam Head Exam: ATRAUMATIC - Eye Exam Eye Exam: Normal appearance Pupil Exam: PERRL - ENT Exam ENT Exam: Normal Exam - Neck Exam Neck Exam: Full ROM - Respiratory Exam Respiratory Exam: Clear to Ausculation Bilateral - Cardiovascular Exam Cardiovascular Exam: +S1, +S2 - GI/Abdominal Exam GI & Abdominal Exam: Soft, Tenderness, Normal Bowel Sounds Additional comments: moderate epigastric tenderness Assessment and Plan (1) Abdominal pain Assessment & Plan: Abdominal pain has improved though epigastric pain remains present. Possible upper endoscopy tomorrow to r/o ulcer and gastritis. Status: Acute
[2018-06-26] MEDS ORDERED: Propofol 10 mg/ml Inj (20 ML) ONE (08:59)
[2018-06-26] MEDS ORDERED: Lactated Ringer's 500 ML IV ONE (09:30)
[2018-06-26] MEDS: Sucralfate 1 gm/10 ml Oral Susp UD PO SCH ×4 (11:44→21:14)
[2018-06-27 08:03] VITALS: RESP 18
[2018-06-27] MEDS: Sucralfate 1 gm/10 ml Oral Susp UD PO SCH ×2 (08:42→12:53)
[2018-06-27 11:49] VITALS: BP 129/71; PULSE 77; TEMP 98.6; O2SAT 96
[2018-06-27 16:24] LABS: SCHISTOSOMA AB <1.00
[2018-06-29 03:45] LABS: B2 GLYCOPROTEIN I AB(IGA) <9 SAU (<=20); B2 GLYCOPROTEIN I AB(IGG) <9 SGU (<=20); B2 GLYCOPROTEIN I AB(IGM) <9 SMU (<=20)
--- NOTE | 2018-06-29 21:49 | PQF ---
PROVIDER RESPONSE TEXT: ABDOMINAL PAIN LIKELY DUE TO GASTRITIS, HOWEVER PENDING BIOPSY RESULTS REVIEWER QUERY TEXT: Symptom Underlying Cause Please document the underlying diagnosis causing the patient?s documented symptom(s) or whether those are insignificant or unable to be further specified. WAS ETIOLOGY OF ABDOMINAL PAIN DETERMINED. The patient's Clinical Indicators include: Patient with apdominal pain ,epigastric pain. Cashexia and weight loss. Upper GI endoscopy done on 06/26/18 , showed hiatal hernia/duodenum was normal. Query created by: Kailey Wynne on 06/29/2018 3:54 PM Electronically signed by: Duke Laws 06/29/2018 9:45 PM
[2018-06-30 05:22] LABS: CARDIOLIPIN AB (IGA) <11 APL (<=11); CARDIOLIPIN AB (IGG) <14 GPL (<=14); CARDIOLIPIN AB (IGM) <12 MPL (<=12); PHOSPHATIDYLSERINE AB IGA <20 U/mL (<20); PHOSPHATIDYLSERINE AB IGG <10 U/mL (<10); PHOSPHATIDYLSERINE AB IGM <25 U/mL (<25)
== END 2018-06-27 13:45 | disposition left against medical advice (07) | DRG 182 ==
LOC: H.ER 00:08 → H.ERHOLD 02:16 → OBSVTOIN 08:37 → H.TEL 10:11
PROVIDERS: ADMIT Family Medicine; ATTEND Family Medicine
PROC: 0DD68ZX Extraction of Stomach, Via Natural or Artificial Opening Endoscopic, Diagnostic (ICD-10-PCS; principal; 2018-06-26 09:00)
DX: K29.50 Unspecified chronic gastritis without bleeding (principal); R64 Cachexia; E87.6 Hypokalemia; F06.30 Mood disorder due to known physiological condition, unspecified; R10.13 Epigastric pain; K21.9 Gastro-esophageal reflux disease without esophagitis; K59.00 Constipation, unspecified; K80.20 Calculus of gallbladder without cholecystitis without obstruction; M41.9 Scoliosis, unspecified; N20.0 Calculus of kidney; D64.9 Anemia, unspecified; F12.10 Cannabis abuse, uncomplicated; F32.9 Major depressive disorder, single episode, unspecified; Z80.3 Family history of malignant neoplasm of breast; Z87.891 Personal history of nicotine dependence; K82.9 Disease of gallbladder, unspecified; R06.82 Tachypnea, not elsewhere classified; Z79.899 Other long term (current) drug therapy; R00.1 Bradycardia, unspecified; I77.6 Arteritis, unspecified; R07.9 Chest pain, unspecified; K44.9 Diaphragmatic hernia without obstruction or gangrene

== ENCOUNTER 2018-07-09 17:30 | Emergency (ER) | payer MEDICAID ==
[2018-07-09 17:30] VITALS: BMI 18.8
[2018-07-09 17:38] VITALS: TEMP 98.1
[2018-07-09 19:01] LABS: SQUAMOUS EPITHIAL 3 /hpf (0-5); URINE AMORPHOUS SEDIMENT FEW /ul (<OCC); URINE BACTERIA RARE (<OCC); URINE BILIRUBIN NEGATIVE (NEGATIVE); URINE BLOOD SMALL (NEGATIVE); URINE CLARITY CLOUDY (Clear); URINE COLOR YELLOW (YELLOW); URINE GLUCOSE (UA) NEG (NEGATIVE); URINE LEUKOCYTE ESTERASE NEG Leu/uL (Negative); URINE PROTEIN NEGATIVE (NEGATIVE)
[2018-07-09 19:03] LABS: BASO # 0.1 K/uL (0.0-0.2); BASO % 1.2 % (0.0-2.0); EOS # 0.1 K/uL (0.0-0.7); EOS % 2.2 % (0.0-4.0); HEMOGLOBIN 12.9 g/dL (12.0-16.0); LYMPH # 1.9 K/uL (1.0-4.3); LYMPH % 31.4 % (20.0-40.0); MEAN CELL VOLUME 86.1 fl (81.0-99.0); MEAN CORPUSCULAR HEMOGLOBIN 28.8 pg (27.0-31.0); MEAN CORPUSCULAR HGB CONC 33.5 g/dL (33.0-37.0); MEAN PLATELET VOLUME 8.5 fl (7.2-11.7); MONO # 0.7 K/uL (0.0-0.8); MONO % 11.5 % (0.0-10.0); NEUT # 3.2 K/uL (1.8-7.0); NEUT % 53.7 % (50.0-75.0); NRBC % 0.1 % (0.0-0.0); RBC 4.49 Mil/uL (3.80-5.20); RED CELL DISTRIBUTION WIDTH 13.1 % (11.5-14.5)
[2018-07-09 19:20] LABS: ALB/GLOB RATIO 1.2 (1.0-2.1); ALBUMIN 4.1 g/dL (3.5-5.0); ALT/SGPT 38 U/L (9-52); AST/SGOT 23 U/L (14-36); BLOOD UREA NITROGEN 11 mg/dl (7-17); CALCIUM 9.1 mg/dL (8.4-10.2); GFR NON-AFRICAN AMERICAN > 60
--- NOTE | 2018-07-09 19:43 | ED PDOC ---
HPI: General Adult Time Seen by Provider: 07/09/18 18:04 Chief Complaint (Nursing): Chest Pain Chief Complaint (Provider): Continued headache and left sided UE tingling/numbness History Per: Patient History/Exam Limitations: no limitations Onset/Duration Of Symptoms: Days Current Symptoms Are (Timing): Still Present Additional Complaint(s): 33 year old female presents to the ED for evaluation of left sided headache, left sided neck pain, tingling/numbness in her left arm, and abdominal pain, which are exactly the same complaints as her symptoms when she was discharged on 06/27. On 06/27, she was admitted to [facility] and seen by GI, neurology, had two hob grinder (one for left sided numbness/tingling), and had an in-patient MRI, but had to AMA before results came back from neurology. Patient states she can be admitted now after AMA-ing last time because everything is sorted out with her children. PMD: Isidra Tapia Past Medical History Reviewed: Historical Data, Nursing Documentation, Vital Signs Vital Signs: Last Vital Signs Temp 98.1 F 07/09/18 17:35 Pulse 78 07/09/18 17:35 Resp 16 07/09/18 17:35 BP 118/53 L 07/09/18 17:35 Pulse Ox 100 07/09/18 17:35 - Medical History PMH: Back Problems (Scoliosis; herniated disc), Gall Bladder Disease (''LIQUID AROUND GALLBLADDER''), Malignancy (ovarian tumor) Denies: Chronic Kidney Disease - Surgical History Other surgeries: lt ovarian cyst removal. Rt ovarian tumor removal - Family History Family History: States: Unknown Family Hx - Social History Current smoker - smoking cessation education provided: No Alcohol: None Drugs: Denies - Immunization History Hx Tetanus Toxoid Vaccination: No Hx Influenza Vaccination: No Hx Pneumococcal Vaccination: No - Home Medications Home Medications: Ambulatory Orders Medication Instructions Recorded Albuterol HFA [Ventolin HFA 90 200 puff IH PRN PRN 06/21/18 mcg/actuation (8 g)] Ciprofloxacin HCl [Cipro] 500 mg PO Q12H 06/21/18 Famotidine [Pepcid] 20 mg PO BID 06/21/18 Fluticasone Propionate [Armonair 113 mcg IH BID 06/21/18 Respiclick] Norgestimate-Ethinyl Estradiol 1 tab PO DAILY 06/21/18 [Tri-Linyah 35 Mcg-0.25 mg] Pantoprazole Sodium [Protonix] 40 mg PO DAILY 06/21/18 metroNIDAZOLE [Flagyl] 500 mg PO Q12H 06/21/18 traMADol [Ultram] 50 mg PO Q6H PRN #15 tab 07/09/18 - Allergies Allergies/Adverse Reactions: Allergies Allergy/AdvReac Type Severity Reaction Status Date / Time No Known Allergies Allergy Verified 07/09/18 17:35 Review of Systems ROS Statement: Except As Marked, All Systems Reviewed And Found Negative Gastrointestinal: Positive for: Abdominal Pain Musculoskeletal: Positive for: Neck Pain (left sided) Neurological: Positive for: Numbness (and tingling in left arm), Headache (left sided) Physical Exam - Reviewed Nursing Documentation Reviewed: Yes Vital Signs Reviewed: Yes - Physical Exam Appears: Positive for: No Acute Distress Head Exam: Positive for: ATRAUMATIC Skin: Positive for: Normal Color. Negative for: Rash Eye Exam: Positive for: Normal appearance ENT: Positive for: Normal ENT Inspection Neck: Positive for: Normal, Painless ROM, Supple Cardiovascular/Chest: Positive for: Regular Rate, Rhythm Respiratory: Positive for: Normal Breath Sounds. Negative for: Respiratory Distress Gastrointestinal/Abdominal: Positive for: Normal Exam, Soft. 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 Negative for: Motor/Sensory Deficits, Aphasia, Facial Droop - Laboratory Results Result Diagrams: 07/09/18 18:53 07/09/18 18:53 - ECG O2 Sat by Pulse Oximetry: 100 (RA) Pulse Ox Interpretation: Normal Medical Decision Making Medical Decision Making: Time: 1835 Initial Impression: paresthesia Initial Plan: --CMP --Trop I --CBC with differential --CXR --Urine culture --Urinalysis Pt reports same symptoms as when she was in-patient at the end of June. Discussed with Dr. Pfeiffer. States if there are no new symptoms patient may continue out-patient follow-up. Pt has scheduled appointments with GI and neurology. Pt states she has been seeing neurologist after head injury at work a few years ago. Dr. Hair saw patient in-patient during previous admission and agrees with plan. Scribe Attestation: Documented by Katherin Levi, acting as a scribe for Venecia Webb PA-C Provider Scribe Attestation: All medical record entries made by the Scribe were at my direction and personally dictated by me. I have reviewed the chart and agree that the record accurately reflects my personal performance of the history, physical exam, medical decision making, and the department course for this patient. I have also personally directed, reviewed, and agree with the discharge instructions and disposition. Disposition - Clinical Impression Clinical Impression: Abdominal pain, Paresthesia - Patient ED Disposition Is Patient to be Admitted: No Counseled Patient/Family Regarding: Diagnosis, Need For Followup, Rx Given - Disposition Disposition: Routine/Home Disposition Time: 19:40 Condition: GOOD Prescriptions: traMADol [Ultram] 50 mg PO Q6H PRN #15 tab PRN Reason: Pain Instructions: Chronic Pain (DC) Forms: [employer] ([place])
[2018-07-09 22:59] VITALS: BP 125/66; PULSE 68; RESP 18
--- NOTE | 2018-07-10 10:07 | RAD ---
Date of service: 07/09/2018 HISTORY: chest pain COMPARISON: Chest radiographs 11/25/2010 TECHNIQUE: Chest PA and lateral FINDINGS: LUNGS: No active pulmonary disease. PLEURA: No significant pleural effusion identified. No pneumothorax apparent. CARDIOVASCULAR: No aortic atherosclerotic calcification present. Normal cardiac size. No pulmonary vascular congestion. OSSEOUS STRUCTURES: No significant abnormalities. VISUALIZED UPPER ABDOMEN: Normal. OTHER FINDINGS: None. IMPRESSION: No interval acute cardiopulmonary disease appreciated.
[2018-07-12 20:31] VITALS: O2SAT 100
== END 2018-07-09 20:15 | disposition home or self-care (01) ==
LOC: H.ER 17:30
DX: R20.2 Paresthesia of skin (principal); R10.9 Unspecified abdominal pain

== ENCOUNTER 2018-07-24 22:06 | Emergency (ER) | payer MEDICAID ==
[2018-07-24 22:06] VITALS: BMI 18.8
[2018-07-24 23:01] VITALS: BP 106/67; PULSE 64; RESP 18; O2SAT 98
[2018-07-25] MEDS ORDERED: Oxycodone/Acetaminophen 5/325 mg Tab PO STA (00:09)
[2018-07-25] MEDS ORDERED: Oxycodone/Acetaminophen 5/325 mg Tab ONE (00:31)
--- NOTE | 2018-07-25 00:57 | ED PDOC ---
HPI: Headache Time Seen by Provider: 07/24/18 23:31 Chief Complaint (Nursing): Headache Chief Complaint (Provider): Left sided neck and head pain History Per: Patient History/Exam Limitations: no limitations Onset/Duration Of Symptoms: Days Current Symptoms Are (Timing): Still Present Additional Complaint(s): 33 year old female presents to the ED for evaluation of left sided headache, left sided neck pain, tingling/numbness in her left arm, and abdominal pain, which are exactly the same complaints as her symptoms when she was discharged. Pt was seen in ER on 07/09/18 for same symptoms. Discussed with Dr. Valles who stated patient could f/.u out-patient. Pt was seen by Dr. Valles this morning. Pt was given rx for out-patient MRI and labs. PT went to [facility] today for MRI and labs in the ER and was instructed to f/u. Pt states she as appointment for MRI friday07/27/18. Pt states she was told to come to ER for pain control. Past Medical History Reviewed: Historical Data, Nursing Documentation, Vital Signs Vital Signs: Last Vital Signs Temp 98.4 F 07/24/18 22:59 Pulse 64 07/24/18 22:59 Resp 18 07/24/18 22:59 BP 106/67 07/24/18 22:59 Pulse Ox 98 07/24/18 22:59 - Medical History PMH: Back Problems (Scoliosis; herniated disc), Gall Bladder Disease (''LIQUID AROUND GALLBLADDER''), Malignancy (ovarian tumor) Denies: Chronic Kidney Disease - Surgical History Surgical History: No Surg Hx - Family History Family History: States: Unknown Family Hx - Living Arrangements Living Arrangements: With Family - Social History Current smoker - smoking cessation education provided: No - Immunization History Hx Tetanus Toxoid Vaccination: No Hx Influenza Vaccination: No Hx Pneumococcal Vaccination: No - Home Medications Home Medications: Ambulatory Orders Medication Instructions Recorded Albuterol HFA [Ventolin HFA 90 200 puff IH PRN PRN 06/21/18 mcg/actuation (8 g)] Ciprofloxacin HCl [Cipro] 500 mg PO Q12H 06/21/18 Famotidine [Pepcid] 20 mg PO BID 06/21/18 Fluticasone Propionate [Armonair 113 mcg IH BID 06/21/18 Respiclick] Norgestimate-Ethinyl Estradiol 1 tab PO DAILY 06/21/18 [Tri-Linyah 35 Mcg-0.25 mg] Pantoprazole Sodium [Protonix] 40 mg PO DAILY 06/21/18 metroNIDAZOLE [Flagyl] 500 mg PO Q12H 06/21/18 traMADol [Ultram] 50 mg PO Q6H PRN #15 tab 07/09/18 Acetaminophen/Butalbital/Caf 1 tab PO TID PRN #20 tab 07/24/18 [Fioricet] oxyCODONE/Acetaminophen [Percocet 1 ea PO Q6H PRN #10 tab 07/25/18 5/325 mg Tab] - Allergies Allergies/Adverse Reactions: Allergies Allergy/AdvReac Type Severity Reaction Status Date / Time No Known Allergies Allergy Verified 07/24/18 22:59 Review of Systems ROS Statement: Except As Marked, All Systems Reviewed And Found Negative Constitutional: Negative for: Fever, Chills Cardiovascular: Negative for: Chest Pain, Palpitations Respiratory: Negative for: Cough, Shortness of Breath Gastrointestinal: Negative for: Nausea, Vomiting, Abdominal Pain Neurological: Positive for: Numbness, Headache, Dizziness. Negative for: Weakness Physical Exam - Reviewed Nursing Documentation Reviewed: Yes Vital Signs Reviewed: Yes - Physical Exam Appears: Positive for: Well, Non-toxic, No Acute Distress Head Exam: Positive for: ATRAUMATIC, NORMAL INSPECTION, NORMOCEPHALIC Skin: Positive for: Normal Color, Warm, DRY Eye Exam: Positive for: EOMI, Normal appearance, PERRL ENT: Positive for: Normal ENT Inspection Neck: Positive for: Normal, Painless ROM Cardiovascular/Chest: Positive for: Regular Rate, Rhythm Respiratory: Positive for: CNT, Normal Breath Sounds Back: Positive for: Normal Inspection Extremity: Positive for: Normal ROM Neurologic/Psych: Positive for: Alert, Oriented, Gait. Negative for: Aphasia, Facial Droop - ECG O2 Sat by Pulse Oximetry: 98 Disposition - Clinical Impression Clinical Impression: Paresthesia, Headache - Patient ED Disposition Is Patient to be Admitted: No - Disposition Referrals: Isidra Tapia MD [Primary Care Provider] - Disposition: Routine/Home Disposition Time: 00:54 Condition: GOOD Prescriptions: oxyCODONE/Acetaminophen [Percocet 5/325 mg Tab] 1 ea PO Q6H PRN #10 tab PRN Reason: Pain, Severe (8-10) Instructions: Headache, Adult, Paresthesias (DC) Forms: [employer] (Sami)
[2018-07-25 03:35] VITALS: TEMP 97.9
== END 2018-07-25 00:57 | disposition home or self-care (01) ==
LOC: H.ER 22:06
DX: R51 Headache (principal); R20.0 Anesthesia of skin; M41.9 Scoliosis, unspecified

== ENCOUNTER 2018-08-18 22:33 | Emergency (ER) | payer MEDICAID ==
[2018-08-18 22:34] VITALS: BMI 18.8
[2018-08-18 22:41] VITALS: TEMP 98.1; O2SAT 98
[2018-08-18] MEDS ORDERED: DiphenhydrAMINE 50 mg/ml Inj IVP STA (22:59)
[2018-08-18] MEDS ORDERED: DiphenhydrAMINE 50 mg/ml Inj ONE (23:20)
[2018-08-18 23:24] LABS: BASO # 0.1 K/uL (0.0-0.2); BASO % 1.2 % (0.0-2.0); EOS # 0.2 K/uL (0.0-0.7); HEMOGLOBIN 12.9 g/dL (12.0-16.0); LYMPH # 2.1 K/uL (1.0-4.3); LYMPH % 39.4 % (20.0-40.0); MEAN CELL VOLUME 88.5 fl (81.0-99.0); MEAN CORPUSCULAR HEMOGLOBIN 29.3 pg (27.0-31.0); MEAN CORPUSCULAR HGB CONC 33.1 g/dL (33.0-37.0); MEAN PLATELET VOLUME 9.5 fl (7.2-11.7); MONO # 0.6 K/uL (0.0-0.8); MONO % 11.7 % (0.0-10.0); NEUT # 2.4 K/uL (1.8-7.0); NEUT % 44.7 % (50.0-75.0); NRBC % 0.2 % (0.0-0.0); RBC 4.41 Mil/uL (3.80-5.20); RED CELL DISTRIBUTION WIDTH 13.5 % (11.5-14.5); WHITE BLOOD COUNT 5.4 K/uL (4.8-10.8)
[2018-08-18 23:32] LABS: ALB/GLOB RATIO 1.3 (1.0-2.1); ALBUMIN 4.3 g/dL (3.5-5.0); ALT/SGPT 45 U/L (9-52); AST/SGOT 25 U/L (14-36); BLOOD UREA NITROGEN 10 mg/dl (7-17); CALCIUM 9.2 mg/dL (8.4-10.2); GFR NON-AFRICAN AMERICAN > 60
--- NOTE | 2018-08-18 23:39 | ED PDOC ---
HPI: Headache Time Seen by Provider: 08/18/18 22:43 Chief Complaint (Nursing): Weakness/Neurological Deficit Chief Complaint (Provider): Headache History Per: Patient History/Exam Limitations: no limitations Onset/Duration Of Symptoms: Days (x 1) Current Symptoms Are (Timing): Still Present Quality: "Pain" Associated Symptoms: Nausea, Vomiting Additional Complaint(s): 33 year old female with a history of headaches and migraines presents to the ED with a right sided headache associated with right sided paresthesias in her arm, leg and face, onset 2 pm today. Patient also reports nausea, an episode of vomiting, near fainting and an episode of uncontrollable shaking to her right hand. Her headaches are usually on her left side. However, this past Friday, during her appointment with Dr. Pfeiffer, she was diagnosed with a right sided schwannoma. She has been taking Topamax as prescribed for migraines without relief. Patient has an appointment with Dr. Day, ENT, for further follow up. Initially on arrival, patient is on the phone and kept phone on her ear during the entire history taking. Offers no other complaints. PMD: Dr. Isidra Tapia Past Medical History Reviewed: Historical Data, Nursing Documentation, Vital Signs Vital Signs: Last Vital Signs Temp 98.1 F 08/18/18 22:36 Pulse 66 08/18/18 22:36 Resp 16 08/18/18 22:36 BP 118/59 L 08/18/18 22:36 Pulse Ox 98 08/18/18 22:36 - Medical History PMH: Back Problems (Scoliosis; herniated disc), Gall Bladder Disease (''LIQUID AROUND GALLBLADDER''), Malignancy (ovarian tumor), Migraine Denies: Chronic Kidney Disease - Surgical History Surgical History: No Surg Hx - Family History Family History: States: Unknown Family Hx - Immunization History Hx Tetanus Toxoid Vaccination: No Hx Influenza Vaccination: No Hx Pneumococcal Vaccination: No - Home Medications Home Medications: Ambulatory Orders Medication Instructions Recorded Naproxen [Naprosyn Tab] 375 mg PO TIDPC #20 tab 08/20/18 Topiramate [Topamax] 25 mg PO BID 08/20/18 - Allergies Allergies/Adverse Reactions: Allergies Allergy/AdvReac Type Severity Reaction Status Date / Time No Known Allergies Allergy Verified 08/20/18 15:24 Review of Systems ROS Statement: Except As Marked, All Systems Reviewed And Found Negative Constitutional: Positive for: Other (right sided paresthesias in right arm, leg and face; near syncope) Gastrointestinal: Positive for: Nausea, Vomiting (one episode) Neurological: Positive for: Headache Physical Exam - Reviewed Nursing Documentation Reviewed: Yes Vital Signs Reviewed: Yes - Physical Exam Appears: Positive for: In Acute Distress (mild painful distress) Head Exam: Positive for: ATRAUMATIC, NORMOCEPHALIC Skin: Positive for: Warm, Dry Eye Exam: Positive for: Normal appearance, EOMI, PERRL. Negative for: Nystagmus ENT: Positive for: Pharynx Is (clear) Neck: Positive for: Painless ROM, Supple, Trachea Midline Cardiovascular/Chest: Positive for: Regular Rate, Rhythm. Negative for: Murmur Respiratory: Positive for: Normal Breath Sounds. Negative for: Respiratory Distress Gastrointestinal/Abdominal: Positive for: Soft. Negative for: Tenderness Back: Positive for: Normal Inspection. Negative for: Decreased ROM Extremity: Positive for: Normal ROM. Negative for: Deformity Lymphatic: Negative for: Adenopathy Neurologic/Psych: Positive for: Alert, departmental shipping clerk II-XII (grossly intact), Oriented (x 3), Other (normal speech). Negative for: Motor/Sensory Deficits, Facial Droop - Laboratory Results Result Diagrams: 08/18/18 23:10 08/18/18 23:10 Lab Results: Total Bilirubin 0.4 mg/dl (0.2-1.3) 08/18/18 23:10 AST 25 U/L (14-36) 08/18/18 23:10 ALT 45 U/L (9-52) 08/18/18 23:10 Alkaline Phosphatase 74 U/L (38-126) 08/18/18 23:10 Total Protein 7.7 G/DL (6.3-8.2) 08/18/18 23:10 Albumin 4.3 g/dL (3.5-5.0) 08/18/18 23:10 Globulin 3.4 gm/dL (2.2-3.9) 08/18/18 23:10 Albumin/Globulin Ratio 1.3 (1.0-2.1) 08/18/18 23:10 - ECG O2 Sat by Pulse Oximetry: 98 (RA) Pulse Ox Interpretation: Normal Medical Decision Making Medical Decision Makin:57 Impression: headache Other neuro symptoms of right sided weakness unlikely related to schwannoma Initial Plan: Discussed with Dr. Pfeiffer, neurologist, who suggest patient's symptoms is likely due to migraine or tension headache Suggests Toradol, Reglan and Benadryl States that no further imaging necessary Orders: --CMP --CBC --Magnesium --Phosphate --urine dip --urine preg --Benadryl 25 mg IVP --Reglan 10 mg IV --Toradol 15 mg IVP --Urine cx --UA 00:00 --Patient signed out to Dr. Batista pending lab results and reevaluation. Scribe Attestation: Documented by Sue Simental acting as a scribe for Yulisa Donahue MD Provider Scribe Attestation: All medical record entries made by the Scribe were at my direction and personally dictated by me. I have reviewed the chart and agree that the record accurately reflects my personal performance of the history, physical exam, medical decision making, and the department course for this patient. I have also personally directed, reviewed, and agree with the discharge instructions and disposition. Disposition - Clinical Impression Clinical Impression: Frequent headaches - Patient ED Disposition Is Patient to be Admitted: Transfer of Care - Disposition Disposition: Transfer of Care Disposition Time: 00:00 Condition: IMPROVED Additional Instructions: follow up with ENT as instructed previously return to the ED with any worsening or concerning symptoms Instructions: Headache, Adult, Polysubstance Abuse (DC) Forms: [employer] (Slovak) Patient Signed Over To: Rosa Batista
[2018-08-19 00:12] LABS: BARBITURATES, UR NEGATIVE (NEGATIVE); BENZODIAZEPINES, UR NEGATIVE (NEGATIVE); OPIATES, UR NEGATIVE (NEGATIVE); PHENCYCLIDINE, UR NEGATIVE (NEGATIVE)
--- NOTE | 2018-08-19 00:40 | ED PDOC ---
- Laboratory Results Result Diagrams: 08/18/18 23:10 08/18/18 23:10 Lab Results: Total Bilirubin 0.4 mg/dl (0.2-1.3) 08/18/18 23:10 AST 25 U/L (14-36) 08/18/18 23:10 ALT 45 U/L (9-52) 08/18/18 23:10 Alkaline Phosphatase 74 U/L (38-126) 08/18/18 23:10 Total Protein 7.7 G/DL (6.3-8.2) 08/18/18 23:10 Albumin 4.3 g/dL (3.5-5.0) 08/18/18 23:10 Globulin 3.4 gm/dL (2.2-3.9) 08/18/18 23:10 Albumin/Globulin Ratio 1.3 (1.0-2.1) 08/18/18 23:10 - ECG O2 Sat by Pulse Oximetry: 98 (RA) Pulse Ox Interpretation: Normal Medical Decision Making Medical Decision Makin:00 --Patient signed out to this provider by Dr. Donahue pending labs and reevaluation. 01:20 --Patient requires no further treatment in the ED at this time. pt feels better. cocaine and marijuana positive in urine. Stable for discharge. Follow up with PMD and ENT outpt. Return precautions provided. Scribe Attestation: Documented by Sue Simental acting as a scribe for Rosa Batista MD Provider Scribe Attestation: All medical record entries made by the Scribe were at my direction and personally dictated by me. I have reviewed the chart and agree that the record accurately reflects my personal performance of the history, physical exam, medical decision making, and the department course for this patient. I have also personally directed, reviewed, and agree with the discharge instructions and disposition. Disposition Counseled Patient/Family Regarding: Studies Performed, Diagnosis, Need For Followup - Clinical Impression Clinical Impression: Polysubstance abuse, Frequent headaches - POA Present On Arrival: None - Disposition Disposition: Routine/Home Disposition Time: 01:20 Condition: IMPROVED Additional Instructions: follow up with ENT as instructed previously return to the ED with any worsening or concerning symptoms Instructions: Headache, Adult, Polysubstance Abuse (DC) Forms: [employer] (Romanian)
[2018-08-19 00:48] LABS: SQUAMOUS EPITHIAL 3 /hpf (0-5); URINE AMORPHOUS SEDIMENT OCC /ul (<OCC); URINE BILIRUBIN NEGATIVE (NEGATIVE); URINE BLOOD MODERATE (NEGATIVE); URINE CLARITY CLOUDY (Clear); URINE COLOR YELLOW (YELLOW); URINE GLUCOSE (UA) NEG (NEGATIVE); URINE LEUKOCYTE ESTERASE NEG Leu/uL (Negative); URINE PROTEIN 100 mg/dL (NEGATIVE); URINE UROBILINOGEN 0.2-1.0 mg/dL (0.2-1.0)
[2018-08-19 01:43] VITALS: BP 95/61; PULSE 63; RESP 18
== END 2018-08-19 01:45 | disposition home or self-care (01) ==
LOC: H.ER 22:33
DX: G44.52 New daily persistent headache (NDPH) (principal); F19.10 Other psychoactive substance abuse, uncomplicated
CPT/HCPCS: 80053; 80324; 80345; 80346; 80349; 80353; 80358; 80361; 81003; 81025; 83735; 83992; 84100; 85025; 87086; 87181; 96374; 96375; 99284; J1200; J1885; J2765

== ENCOUNTER 2018-10-14 07:00 | Emergency (ER) | payer MEDICAID ==
[2018-10-14 07:00] VITALS: BMI 18.8
[2018-10-14 07:10] VITALS: RESP 18; TEMP 98.9; O2SAT 98
[2018-10-14] MEDS ORDERED: Sodium Chloride 0.9% 1,000 ML IV STA (07:32)
--- NOTE | 2018-10-14 07:37 | ED PDOC ---
HPI: General Adult Time Seen by Provider: 10/14/18 07:15 Chief Complaint (Nursing): Weakness/Neurological Deficit Chief Complaint (Provider): Weakness/Neurological Deficit History Per: Patient History/Exam Limitations: no limitations Onset/Duration Of Symptoms: Days (x14) Current Symptoms Are (Timing): Still Present Additional Complaint(s): 33 year old female with a past medical history of a stroke, herniated disc, ovarian cysts, and scoliosis who is presenting to the ED for evaluation of numbness and cramping to the right side of the body including the face, arm, and leg worsening for 2 weeks. Patient states that 3 to 4 days after right side symptoms began she experienced the same symptoms to left side of the body with milder intensity. She also complains of intermittent chest pain, shortness of breath, dizziness, vomiting, chills, and head pressure to the back and left side. Patient reports that in June she was in this ED after which she was admitted for a stroke with an unknown cause. She states that the stroke presented with numbness in left face and arm. Patient also adds that in August she was at [facility] for being "paralyzed" and could not walk. She admits that there they performed a brain wave test and MRI and told her she had a blood clot in her brain. She reports that she was put on migraine medication but it has not improved any of her symptoms and reports that she used to follow with Dr. Pfeiffer, neurologist, but she is currently looking for a different doctor. Of note, her neurosurgeon is Dr. Xu Metzger in [facility]. Who states her symptoms are not related to a tumor or her brain. Upon previous chart review, patient has a history of multiple ED visits for similar complaints. PMD: Dr. Teresa Tapia - Last followed up with her in August Past Medical History Reviewed: Historical Data, Nursing Documentation, Vital Signs Vital Signs: Last Vital Signs Temp 98.9 F 10/14/18 07:10 Pulse 78 10/14/18 07:10 Resp 18 10/14/18 07:10 BP 107/60 10/14/18 07:10 Pulse Ox 98 10/14/18 07:10 - Medical History PMH: Back Problems (Scoliosis; herniated disc), CVA, Gall Bladder Disease, Migraine Denies: Chronic Kidney Disease - Surgical History Other surgeries: Malignancy - Family History Family History: States: Unknown Family Hx - Social History Current smoker - smoking cessation education provided: No Alcohol: None Drugs: Cocaine (hx ) - Immunization History Hx Tetanus Toxoid Vaccination: No Hx Influenza Vaccination: No Hx Pneumococcal Vaccination: No - Home Medications Home Medications: Ambulatory Orders Medication Instructions Recorded Topiramate [Topamax] 25 mg PO BID 08/20/18 Metoclopramide [Reglan] 10 mg PO BID PRN 5 Days tab 10/14/18 - Allergies Allergies/Adverse Reactions: Allergies Allergy/AdvReac Type Severity Reaction Status Date / Time Iodinated Contrast- Oral and Allergy RASH Verified 10/14/18 07:29 IV Dye Review of Systems ROS Statement: Except As Marked, All Systems Reviewed And Found Negative Constitutional: Positive for: Chills Cardiovascular: Positive for: Chest Pain Respiratory: Positive for: Shortness of Breath Gastrointestinal: Positive for: Vomiting, Diarrhea Neurological: Positive for: Weakness, Numbness, Headache, Dizziness Physical Exam - Reviewed Nursing Documentation Reviewed: Yes Vital Signs Reviewed: Yes - Physical Exam Appears: Positive for: Non-toxic, No Acute Distress Head Exam: Positive for: ATRAUMATIC, NORMAL INSPECTION, NORMOCEPHALIC Skin: Positive for: Normal Color, Warm, DRY Eye Exam: Positive for: EOMI, Normal appearance, PERRL ENT: Positive for: Normal ENT Inspection Neck: Positive for: Normal, Painless ROM, Supple Cardiovascular/Chest: Positive for: Regular Rate, Rhythm. Negative for: Murmur Respiratory: Positive for: Normal Breath Sounds. Negative for: Respiratory Distress Gastrointestinal/Abdominal: Positive for: Normal Exam, Soft. Negative for: Tenderness Back: Positive for: Normal Inspection. Negative for: L CVA Tenderness, R CVA Tenderness, Vertebral Tenderness Extremity: Positive for: Other (Upper extremities: 3/5 strength Lower Extremities: 2/5 strength ). Negative for: Tenderness, Pedal Edema, Calf Tenderness, Deformity, Swelling Neurological/Psych: Positive for: Awake, Alert, Oriented (x3), medical assistant supervisor II-XII (normal ). Negative for: Facial Droop - Laboratory Results Result Diagrams: 10/14/18 07:53 10/14/18 07:53 Lab Results: no acute - ECG ECG: Positive for: Interpreted By Me, Viewed By Me ECG Rhythm: Positive for: Normal QRS, Sinus Rhythm O2 Sat by Pulse Oximetry: 98 (RA) Pulse Ox Interpretation: Normal - CT Scan/US ct Other Rad Studies (CT/US): Read By Radiologist Other Rad Interpretation: no acute - Progress ED Course And Treament: 1054: Stable. AAOx3. Pain better. Has mild pressure in head. Will give toradol and dc. Moving all extremities and has no numbness at this time. Ambulated. Has appt with pcp today at 130pm. Pt. upset at the medical system. Tried many places and doctors and has no clear answer about what is going on with her. Has an appt with a neurologist as well that her neurosurgeon rec ommended. Medical Decision Making Medical Decision Making: Time: 7:33 Plan: --CT Head --EKG --Alcohol Serum --CMP --Drug Screen --Magnesium --Phosphorous --Troponin --ED Urine --CBC --Coags --IV Fluids --Reglan 10 mg IV --Glucose, Blood, POC ------ Scribe Attestation: Documented by Hailey Hayes, acting as a scribe for Ramon Quispe MD. Provider Scribe Attestation: All medical record entries made by the Scribe were at my direction and personally dictated by me. I have reviewed the chart and agree that the record accurately reflects my personal performance of the history, physical exam, medical decision making, and the department course for this patient. I have also personally directed, reviewed, and agree with the discharge instructions and di sposition. Disposition - Clinical Impression Clinical Impression: Acute headache, Paresthesia - Patient ED Disposition Is Patient to be Admitted: No Counseled Patient/Family Regarding: Studies Performed, Diagnosis, Need For Followup, Rx Given - Disposition Referrals: [facility] [Outside] - 10/15/18 () Disposition: Routine/Home Disposition Time: 10:57 Condition: STABLE Additional Instructions: See your doctor today as scheduled. Return if not better in 3 days. Prescriptions: Metoclopramide [Reglan] 10 mg PO BID PRN 5 Days tab PRN Reason: Pain, Moderate (4-7) Instructions: Acute Headache (ED), Paresthesias (DC) Forms: [facility] ED School/Work Excuse
[2018-10-14 08:18] LABS: BASO % 0.7 % (0.0-2.0); EOS # 0.1 K/uL (0.0-0.7); EOS % 1.5 % (0.0-4.0); HEMOGLOBIN 12.2 g/dL (12.0-16.0); LYMPH % 20.4 % (20.0-40.0); MEAN CELL VOLUME 87.5 fl (81.0-99.0); MEAN CORPUSCULAR HEMOGLOBIN 28.6 pg (27.0-31.0); MEAN CORPUSCULAR HGB CONC 32.7 g/dL (33.0-37.0); MEAN PLATELET VOLUME 9.1 fl (7.2-11.7); MONO # 0.4 K/uL (0.0-0.8); MONO % 7.9 % (0.0-10.0); NEUT # 3.3 K/uL (1.8-7.0); NEUT % 69.5 % (50.0-75.0); RBC 4.26 Mil/uL (3.80-5.20); RED CELL DISTRIBUTION WIDTH 13.3 % (11.5-14.5); WHITE BLOOD COUNT 4.8 K/uL (4.8-10.8)
[2018-10-14 08:20] LABS: INR 1.1; PROTHROMBIN TIME 12.9 Seconds (9.8-13.1)
--- NOTE | 2018-10-14 08:31 | CARD ---
APPROVED REPORT Date of service: 10/14/2018 EKG Measurement Heart [id number] MO [id number] <Conclusion> Normal sinus rhythm Normal Electrocardiogram
[2018-10-14 08:38] LABS: ALB/GLOB RATIO 1.4 (1.0-2.1); ALBUMIN 4.2 g/dL (3.5-5.0); ALT/SGPT 43 U/L (9-52); AST/SGOT 29 U/L (14-36); BLOOD UREA NITROGEN 7 mg/dl (7-17); GFR NON-AFRICAN AMERICAN > 60
[2018-10-14 08:50] LABS: PHENCYCLIDINE, UR NEGATIVE (NEGATIVE)
[2018-10-14 08:53] LABS: BARBITURATES, UR POSITIVE (NEGATIVE); BENZODIAZEPINES, UR NEGATIVE (NEGATIVE); OPIATES, UR NEGATIVE (NEGATIVE)
--- NOTE | 2018-10-14 09:58 | CT ---
Date of service: 10/14/2018 PROCEDURE: CT HEAD WITHOUT CONTRAST. HISTORY: headache COMPARISON: None available. TECHNIQUE: Axial computed tomography images were obtained through the head/brain without intravenous contrast. Radiation dose: Total exam DLP = 830.59 mGy-cm. This CT exam was performed using one or more of the following dose reduction techniques: Automated exposure control, adjustment of the mA and/or kV according to patient size, and/or use of iterative reconstruction technique. FINDINGS: HEMORRHAGE: No intracranial hemorrhage. BRAIN: No mass effect or edema. No atrophy or chronic microvascular ischemic changes. VENTRICLES: Unremarkable. No hydrocephalus. CALVARIUM: Unremarkable. PARANASAL SINUSES: Unremarkable as visualized. No significant inflammatory changes. MASTOID AIR CELLS: Unremarkable as visualized. No inflammatory changes. OTHER FINDINGS: None. IMPRESSION: Normal CT of the Head.
[2018-10-14 12:23] VITALS: BP 110/70; PULSE 74
== END 2018-10-14 11:30 | disposition home or self-care (01) ==
LOC: H.ER 07:00
DX: R51 Headache (principal); R20.2 Paresthesia of skin; M41.9 Scoliosis, unspecified; Z86.73 Personal history of transient ischemic attack (TIA), and cerebral infarction without residual deficits; Z88.8 Allergy status to other drugs, medicaments and biological substances; R07.89 Other chest pain
CPT/HCPCS: 70450; 80053; 80320; 80324; 80345; 80346; 80349; 80353; 80358; 80361; 81025; 82948; 83735; 83992; 84100; 84484; 85025; 85610; 85730; 93005; 96374; 99285; J1885; J2765; J7030